=== PATIENT | male | born 1975 | race Two or more races ===

== ENCOUNTER → 2024-09-16 | Outpatient (CLI) | payer MEDICAID, SELFPAY ==
--- NOTE | 2024-09-16 15:30 | XR_ITS ---
Exam: MRI knee without contrast, left Date and time of exam: September 16, 2024 1652 hours INDICATIONS: Generalized knee pain one year Technique: Multiple axial, coronal, and sagittal sections on the knee have been obtained. T2-Weighted sagittal, fat-suppressed images, TR 3,500, TE 62, T2 weighted coronal fat-saturated images, TR 3,500, TE 62 Proton density sagittal sections, TR 1800, TE 31. T-1 weighted coronal images, TR 524, TE 13.0 Findings: Medial meniscus anterior horn intact. Medial meniscus, body intact. Posterior horn medial meniscus horizontal linear tear communicating inferior articular surface near the inner margin. Lateral meniscus anterior horn is intact Lateral meniscus, body is intact Posterior horn lateral meniscus is intact Anterior cruciate ligament high-grade sprain Posterior cruciate ligament appears intact. Knee effusion is large. Quadriceps and patellar tendons appear intact. There is no evidence of tendinosis. Inflammatory change or fracture of Hoffa's fat pad is not seen. Medial patellar facet demonstrates moderate thinning. Lateral patellar facet cartilage demonstrates moderate thinning. Trochlear cartilage demonstrates moderate thinning. Marrow signal adequate. Medial collateral ligament appears intact. No meniscocapsular separation is seen. Illiotibial band and fibular collateral ligament are intact. Biceps femoris tendons appear intact. Medial femoral condylar articular cartilage demonstrates moderate thinning. Lateral femoral condylar articular cartilage demonstratesmoderate thinning. Tibial plateau cartilage demonstrates moderate thinning. Impression: Horizontal linear tear posterior horn medial meniscus High-grade sprain anterior cruciate ligament
== END | disposition home or self-care (01) ==
LOC: SMRI 15:27
PROVIDERS: PCP Physician Assistant; Referring Provider Orthopaedic Surgery; Visit Provider Orthopaedic Surgery
DX: S83.512A Sprain of anterior cruciate ligament of left knee, initial encounter (principal); X58.XXXA Exposure to other specified factors, initial encounter; S83.242A Other tear of medial meniscus, current injury, left knee, initial encounter
CPT/HCPCS: 73721

== ENCOUNTER 2024-10-15 15:47 | Inpatient (IN) | payer MEDICAID, SELFPAY ==
[2024-10-15 15:48] VITALS: BMI 28.0
[2024-10-15 15:55] VITALS: BP 141/87; PULSE 101; RESP 20; TEMP 36.7; O2SAT 97
--- NOTE | 2024-10-15 16:05 | XR_ITS ---
Examination: PA lateral chest 2 views TECHNIQUE: Upright PA lateral chest 2 views INDICATIONS: Coughing up blood 2 weeks. FINDINGS: 21 mm pulmonary mass left upper lobe 22 mm pulmonary mass in the superior segment of probably the left lower lobe Normal heart size The osseous structures are intact IMPRESSION: Recommend CT chest without contrast follow-up to confirm pulmonary neoplastic masses
--- NOTE | 2024-10-15 16:06 | EDRME_ITS ---
Rapid Medical Screening Exam [facility] Arrival date/time: 10/15/24 15:47 CC: Coughing with blood HPI cough started 3 months ago speckled blood and then a large pool of blood started in the last 24 hours. Patient denies shortness of breath difficulty breathing does not smoke. Onset of cough 3 months ago was after a URI. No other complaints. Anxious. Chief Complaint: Nausea/Vomiting/Diarrhea Time Seen by Provider: 10/15/24 16:01 Vital signs: Vital Signs Temperature 98.1 F 10/15/24 15:55 Pulse Rate 101 H 10/15/24 15:55 Respiratory Rate 20 10/15/24 15:55 Blood Pressure 141/87 H 10/15/24 15:55 Pulse Oximetry (%) 97 10/15/24 15:55 Oxygen Delivery Method Room Air 10/15/24 15:55
[2024-10-15 16:19] LABS: Basophils # (Auto) 0.1 Thou/mm3 (0.0-0.2); Basophils % (Auto) 1 % (0-2.5); Eosinophils # (Auto) 0.2 Thou/mm3 (0.0-0.5); Eosinophils % (Auto) 2 % (0-10); Hematocrit 42.3 % (41.0-53.0); Hemoglobin 14.1 g/dL (13.5-16.0); Immature Granulocytes Auto 0.05 Thou/mm3 (0.00-0.00); Lymphocytes # (Auto) 4.3 Thou/mm3 (1.0-4.8); Lymphocytes % (Auto) 36 % (10-50); Mean Corpuscular HGB Conc 33.3 g/dl (31.0-37.0); Mean Corpuscular Hemoglobin 30.1 pg (25.0-35.0); Mean Corpuscular Volume 90 fL (80-100); Monocytes # (Auto) 1.3 Thou/mm3 (0.0-0.8); Monocytes % (Auto) 11 % (0-12); Neutrophils # (Auto) 5.9 Thou/mm3 (1.8-7.7); Neutrophils % (Auto) 50 % (37-80); Nucleated Red Blood Cell # 0.00 Thou/mm3 (0.00-0.00); Nucleated Red Blood Cell % 0 /100 WBC (0); Platelet Count 212 Thou/mm3 (140-440); RDW Standard Deviation 43.0 fL (35.1-43.9); Red Blood Count 4.68 Miln/mm3 (4.50-5.90); White Blood Count 11.8 Thou/mm3 (3.8-10.6)
[2024-10-15 16:39] LABS: INR 1.0 (0.9-1.3); Partial Thromboplastin Time 30.4 Seconds (22.0-36.0); Prothrombin Time 11.4 Seconds (9.0-12.2)
--- NOTE | 2024-10-15 16:40 | XR_ITS ---
Examination: CT chest, without intravenous contrast. Sagittal and coronal 2-D reconstructions. Exam date and time: October 15, 2024 1717 hours INDICATIONS: Hemoptysis today with pulmonary masses on chest x-ray today CTDI:vol (mGy) 12.4 DLP: (mGycm) 1412 Technique: Multiple 3.0 mm axial sections of the chest to been obtained. Bone and lung density settings are obtained. Sagittal and coronal 2-D reconstructions have been obtained. Low dose protocols were performed. One or more of the following dose reduction techniques were used; automated exposure control, adjustment of the mA and/or KV according to patient size, use of iterative reconstruction technique. Findings: High left para-aortic lymph node, 13 mm 14 mm right tracheobronchial lymph node No thoracic aortic aneurysmal dilatation Pulmonary artery segments are not enlarged Focal pneumonic consolidation anterior segment left upper lobe axial image 116 Thick-walled cavitary lesion left upper lobe 22 x 20 mm No additional soft pneumonic densities in the lingular segment axial image 147 Diffuse fatty infiltration throughout the liver No gallstones Spleen not enlarged No pancreatic or adrenal mass Kidneys partially visualized old hydronephrosis Mild thoracic spondylosis IMPRESSION: Thick-walled 22 x 20 mm cavitary lesion in the left upper lobe Soft areas of pneumonia in the left lung Highest on the differential list is infectious processes including active tuberculosis, pulmonary neoplasm in the left upper lobe less likely but not excluded
[2024-10-15 16:43] LABS: Alanine Aminotransferase 172 U/L (10-49); Albumin, Serum 4.4 gm/dL (3.5-5.0); Albumin/Globulin Ratio 1.4 (1.2-2.2); Alkaline Phosphatase 131 U/L (46-116); Anion Gap 11 (7-16); Aspartate Amino Transferase 148 U/L (0-34); BUN/Creatinine Ratio 16 Ratio (12-20); Bilirubin,Total 0.5 mg/dL (0.3-1.2); Blood Urea Nitrogen 11 mg/dL (9-23); Calcium 9.2 mg/dL (8.3-10.6); Calcium (Corrected) 9.2 mg/dL (8.5-10.1); Carbon Dioxide 22.3 mMol/L (20.0-31.0); Chloride 102 mMol/L (98-107); Creatinine (Component) 0.7 mg/dL (0.6-1.3); Estimated Creatinine Clearance 128.8 mL/min (>60); Globulin 3.2 gm/dL (2.3-3.5); Glucose 301 mg/dL (74-106); Osmolality,Calculated 280 (275-295); Potassium 4.2 mMol/L (3.4-5.1); Sodium 135 mMol/L (136-145); Total Protein 7.6 gm/dL (5.7-8.2); eGFR > 60 See Note
--- NOTE | 2024-10-15 17:14 | EDNOTE_ITS ---
ED General RME/HPI General Chief complaint: Nausea/Vomiting/Diarrhea Stated complaint: VOMITING BLOOD Time Seen by Provider: 10/15/24 16:01 Arrival date/time: 10/15/24 15:47 RME / HPI RME / HPI narrative: 49-year-old male patient came in for evaluation regarding coughing with blood HPI cough started 3 months ago speckled blood and then a large pool of blood started in the last 24 hours. Patient denies shortness of breath difficulty b reathing does not smoke. Onset of cough 3 months ago was after a URI. No other complaints. Anxious. Related Data Allergies Allergy/AdvReac Type Severity Reaction Status Date / Time No Known Allergies Allergy Verified 10/15/24 15:51 Review of Systems Review of Systems Narrative Review of Systems: Review of system reviewed and within normal limits except mentioned in HPI ED Exam Narrative Physical exam: VITAL SIGNS: Reviewed. GENERAL APPEARANCE: Alert and interactive, follows commands, no acute distress, HEAD AND FACE: Non-traumatic. ENT: PERRL, pink conjunctivitis, eyelid no trauma, Mucous membrane moist. NECK: Supple, nontender, no nuchal rigidity. CHEST: No tenderness, no crepitus, no paradoxical movement, no retractions. LUNGS: Clear, well ventilated, symmetric, no rales, no wheezing, no ronchi, no stridor, good breath sounds bilaterally. HEART: Regular rate, regular rhythm, no murmur, no gallops. ABDOMEN: Soft, positive bowel sounds, nondistended, no guarding, nontender, no rebound, no masses, RECTAL: Deferred. GENITAL: Deferred. NEUROLOGICAL: Gross motor function intact sensory function intact, Appropriate for age. MUSCULOSKELETAL: low back nontender, full range of motion. EXTREMITIES: Nontender, full range of motion. SKIN: Color pink, dry, no rash, no lacerations, no abrasions, no contusions. LYMPHATICS: Deferred. Course Quality Measures none Orders Category Date Time Status Bedside COVID-19 Antigen Test NOW Care 10/15/24 18:43 Active COVID-19 Screening Questionnaire NOW Care 10/15/24 18:18 Active Decision to Admit X1 Care 10/15/24 18:[address] chest wo con Stat Exams 10/15/24 16:40 Completed XR chest 2V Stat Exams 10/15/24 16:05 Completed Blood Culture (Lab) Stat Lab 10/15/24 17:33 Received CBC Stat Lab 10/15/24 16:11 Completed CMP [Comprehensive Metabolic Panel] Stat Lab 10/15/24 16:11 Completed Cocci Serology IgM with reflex to IgG [Cocci Serology, Lab 10/15/24 17:30 Received Unk History] Stat Lactic Acid [Lactate (Lactic Acid)] Stat Lab 10/15/24 17:30 Completed PT [Prothrombin Time with INR] Stat Lab 10/15/24 16:11 Completed PTT [Partial Thromboplastin Time] Stat Lab 10/15/24 16:11 Completed Procalcitonin Stat Lab 10/15/24 16:11 Completed Sputum Culture and Gram Stain Stat Lab 10/15/24 17:55 Received Sodium Chloride Rt Alison 10% [NS Rt Alison 10%] Med 10/15/24 17:16 Discontinued 5 ml INH X1 ONE Sputum Induction PRN RT 10/15/24 17:30 Ordered Vital Signs Vital signs: Vital Signs Temperature 98.1 F 10/15/24 15:55 Pulse Rate 101 H 10/15/24 15:55 Respiratory Rate 20 10/15/24 15:55 Blood Pressure 141/87 H 10/15/24 15:55 Pulse Oximetry (%) 97 10/15/24 15:55 Oxygen Delivery Method Room Air 10/15/24 15:55 Discharge Plan Plan Patient Disposition: Admit Acute Care w/in Hospital Problem List Clinical Impression: Cough with hemoptysis MDM Narrative MDM hospital course: 49-year-old male patient came in for evaluation regarding coughing with blood HPI cough started 3 months ago speckled blood and then a large pool of blood started in the last 24 hours. Patient denies shortness of breath difficulty breathing does not smoke. Onset of cough 3 months ago was after a URI. No other complaints. Anxious. Patient's laboratory workup significant for slight leukocytosis of 11.8 the rest of the labs unremarkable. Shift blood sugar of 301, AST of 148 ALT of 172 alkaline phos of 131. Patient is diabetic CT chest showed Thick-walled 22 x 20 mm cavitary lesion in the left upper lobe Soft areas of pneumonia in the left lung Highest on the differential list is infectious processes including active tuberculosis, pulmonary neoplasm in the left upper lobe less likely but not excluded Case discussed with hospitalist, and admitted the patient. Patient was put on isolation ruling out active tuberculosis. Medication Administration(s) Medication Administration History Acetaminophen (Acetaminophen 325 Mg Tablet) 650 mg PO Q6H PRN PRN Reason: Fever >101.5 Stop: 11/14/24 20:33 Acetaminophen (Acetaminophen 325 Mg Tablet) 650 mg PO Q6H PRN PRN Reason: PAIN SCALE 1-3 (mild Stop: 11/14/24 20:38 Hydrocodone Bitart/Acetaminophen (Hydrocodone/Apap 5/325 Tablet) 1 tab PO Q4HR PRN PRN Reason: PAIN SCALE 4-10(Mod-Sev Stop: 10/20/24 20:38 Enoxaparin Sodium (Enoxaparin Sod Inj 40 Mg/0.4 Ml Syringe) 40 mg SC QDAY SYLVESTER Stop: 10/30/24 08:59 Ondansetron HCl (Ondansetron Inj 2 Mg/Ml Inj 2 Ml) 4 mg IVP Q6H PRN; Protocol PRN Reason: NAUSEA OR VOMITING Stop: 11/14/24 20:38 Sennosides (Senna Tablet) 1 tab PO QDAY PRN; Protocol PRN Reason: constipation Stop: 11/14/24 20:38 Discontinued Medications Sodium Chloride (Sodium Chloride Rt 10% 15 Ml Nebu) 5 ml INH X1 ONE Stop: 10/15/24 17:17 Last Admin: 10/15/24 18:57 Dose: Not Given Documented By: MM Non-Admin Reason: sputum collected Sodium Chloride (Sodium Chloride Rt 10% 15 Ml Nebu) 5 ml INH X1 ONE Stop: 10/15/24 20:51 Diagnosis Differential diagnosis: Hemoptysis, tuberculosis, lung carcinoma Most likely dx, and/or detailed dx discussion: Hemoptysis, ruling out tuberculosis
[2024-10-15 17:39] VITALS: BP 159/85; PULSE 93; RESP 16; TEMP 37.1; O2SAT 98
[2024-10-15 17:45] LABS: Lactate (Lactic Acid) 1.6 mMol/L (0.4-2.0)
[2024-10-15 17:50] LABS: Procalcitonin 0.12 ng/ml (0.0-0.49)
[2024-10-15 18:10] VITALS: BP 126/87; PULSE 89; RESP 17; TEMP 37.1; O2SAT 97
--- NOTE | 2024-10-15 18:55 | PD.RESEVENT ---
Documentation for date of: 10/15/24 Event Note Event Note: ED called for admission at 640pm for 49-year-old male who came in complaining of hematemesis for the past 6 weeks which has worsened over the last couple days. Patient has no risk factor for TB including no incarceration history no recent travels. Will pass that on to the night team for further workup and admissions
[2024-10-15 21:00] VITALS: BP 130/94; PULSE 84; RESP 19; TEMP 36.8; O2SAT 100
--- NOTE | 2024-10-15 21:00 | ESHP_ITS ---
Documentation for date of: 10/15/24 [facility] History of Present Illness Chief complaint: Hemoptysis that has worsened over the last 24 hours History of present illness: 49-year-old male with a history of type 2 diabetes mellitus and hypertension who presents with cough and hemoptysis. He reports cough onset approximately 3 months ago after a febrile upper respiratory illness lasting 1?2 weeks. At that time, he experienced fever and chills which resolved, but he continued to have morning cough with phlegm. About 6 weeks ago, he began noticing specks of bright red blood in sputum intermittently. One week ago, he experienced an episode of pure bright red blood without sputum, lasting about 1 minute, soaking multiple napkins. Today, he again coughed up bright red blood around lunchtime, prompting ED evaluation at the urging of his children. He estimates today?s episode filled 6-7 napkins; no episodes have produced more than this. No foul odor, aspiration, or breathing difficulty during episodes. No chest pain, shortness of breath, night sweats, unintentional weight loss, dysphagia, or voice change. Appetite and weight are stable (81.193 kg), though he eats once daily by choice. He denies prior TB diagnosis, prolonged cough episodes in the past, sick contacts, incarceration, homelessness, or travel outside local area. 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 Denies eye symptoms, oral ulcers, rash, nasal congestion, or sinus symptoms. No hematuria, joint pain aside from chronic right knee swelling (MRI obtained 3?4 weeks ago). ROS: Constitutional: No fevers, chills, night sweats, or weight loss. HEENT: No vision changes, oral ulcers, nasal congestion, epistaxis. Respiratory: Hemoptysis as above, no dyspnea or wheezing. Cardiovascular: No chest pain, palpitations, or syncope. GI: No dysphagia, nausea, vomiting, abdominal pain, melena, or hematochezia. : No hematuria or dysuria. MSK: Chronic right knee swelling. Skin: No rash or nodules. Neuro: No focal deficits, headaches, or seizures. Past Medical History * Type 2 diabetes mellitus * Hypertension Past Surgical History * None Medications * Basaglar 40 units subcutaneously daily * Likely benazepril (pending med rec) Allergies * No known drug allergies Family History * Sister: uterine cancer * No family history of lung cancer or TB Social History * Works as automotive collision estimator (asbestos/diesel exposure) * No tobacco use; occasional cannabis (~monthly) * No second-hand smoke exposure * Rare alcohol (beer) * No illicit drug use * Lives with four children, no sick contacts * New puppy, no bird or rodent exposures Exam Vital Signs Temp Pulse Resp BP Pulse Ox O2 Del Method 98.7 F 89 17 126/87 H 97 Room Air 10/15/24 18:10 10/15/24 18:10 10/15/24 18:10 10/15/24 18:10 10/15/24 18:10 10/15/24 17:39 Narrative Exam General: Alert, oriented, interactive, no acute distress. HEENT: PERRL, moist mucous membranes, no oral lesions, no conjunctival injection. Neck: Supple, no lymphadenopathy. Lungs: Clear to auscultation bilaterally, no wheezes, rales, or rhonchi; symmetric breath sounds. Heart: Regular rate and rhythm, no murmurs. Abdomen: Soft, non-tender, non-distended, positive bowel sounds. Extremities: No cyanosis, clubbing, or edema; right knee swelling noted, non- erythematous. Skin: No rash or nodules. Neuro: No focal deficits. Results: Labs 10/15/24 16:11 10/15/24 16:11 Labs: Short CBC 10/15/24 Range/Units 16:11 WBC 11.8 H (3.8-10.6) Thou/mm3 Hgb 14.1 (13.5-16.0) g/dL Hct 42.3 (41.0-53.0) % Plt Count 212 (140-440) Thou/mm3 BMP 10/15/24 16:11 Sodium 135 L Potassium 4.2 Chloride 102 Carbon Dioxide 22.3 BUN 11 Creatinine 0.7 Glucose 301 H Calcium 9.2 Liver Function 10/15/24 Range/Units 16:11 Total Bilirubin 0.5 (0.3-1.2) mg/dL AST 148 H (0-34) U/L ALT 172 H (10-49) U/L Alkaline Phosphatase 131 H (46-116) U/L Albumin 4.4 (3.5-5.0) gm/dL Quality Measures Quality Measures VTE prophylaxis Medications Home Medications and Allergies Home Medications ?Medication ?Instructions ?Recorded ?Confirmed ?Type acetaminophen 650 mg 650 mg PO Q12H PRN pain 10/0210/15/24 History tablet,extended release amlodipine 5 mg tablet 5 mg PO DAILY 10/15/2410/15 History benazepril 40 mg tablet 40 mg PO DAILY 10/15/2410/02 History cyclobenzaprine 10 mg tablet 10 mg PO .qhs 10/15/24 History hydrocodone 7.5 mg-acetaminophen 1 tab PO Q6H 10/15/24 10/15/24 History 325 mg tablet ibuprofen 600 mg tablet 600 mg PO Q6H PRN pain 10/1510/15/24 History insulin glargine 100 unit/mL (3 40 unit subcut DAILY 0 10/15/24 10/15/24 History mL) subcutaneous pen (Appercodeaglar KwikPen U-100 Insulin) metoprolol succinate 50 mg 50 mg PO DAILY 10/15/2410/02 History tablet,extended release 24 hr promethazine-DM 6.25 mg-15 mg/5 mL 5 ml PO Q4H PRN cou gh 10/15/24 10/15/24 History oral syrup Allergies Allergy/AdvReac Type Severity Reaction Status Date / Time No Known Allergies Allergy Verified 10/15/24 15:51 Visit Medications Acetaminophen (Acetaminophen 325 Mg Tablet) 650 mg PO Q6H PRN PRN Reason: Fever >101.5 Stop: 11/14/24 20:33 Acetaminophen (Acetaminophen 325 Mg Tablet) 650 mg PO Q6H PRN PRN Reason: PAIN SCALE 1-3 (mild Stop: 11/14/24 20:38 Hydrocodone Bitart/Acetaminophen (Hydrocodone/Apap 5/325 Tablet) 1 tab PO Q4HR PRN PRN Reason: PAIN SCALE 4-10(Mod-Sev Stop: 10/20/24 20:38 Enoxaparin Sodium (Enoxaparin Sod Inj 40 Mg/0.4 Ml Syringe) 40 mg SC QDAY SYLVESTER Stop: 10/30/24 08:59 Ondansetron HCl (Ondansetron Inj 2 Mg/Ml Inj 2 Ml) 4 mg IVP Q6H PRN; Protocol PRN Reason: NAUSEA OR VOMITING Stop: 11/14/24 20:38 Sennosides (Senna Tablet) 1 tab PO QDAY PRN; Protocol PRN Reason: constipation Stop: 11/14/24 20:38 Discontinued Medications Sodium Chloride (Sodium Chloride Rt 10% 15 Ml Nebu) 5 ml INH X1 ONE Stop: 10/15/24 17:17 Last Admin: 10/15/24 18:57 Dose: Not Given Sodium Chloride (Sodium Chloride Rt 10% 15 Ml Nebu) 5 ml INH X1 ONE Stop: 10/15/24 20:51 Assessment & Plan Plan 49M with type 2 DM and HTN, presenting with subacute hemoptysis and CT showing a thin-walled cavitary lesion (3.84 mm) in JENNIFER with adjacent pneumonia. Infectious etiology favored; malignancy not excluded. Hemodynamically stable, afebrile, saturating well on room air. # Hemoptysis Thin-walled cavitary lesion with adjacent pneumonia; no massive hemoptysis. Stable H/H, no respiratory distress. Infectious etiology (TB, bacterial, fungal) favored given history; occupational exposures and asbestos raise malignancy risk, but wall thickness <4 mm favors benign causes. Plan: * Airborne isolation until TB ruled out * AFB sputum cultures ?3 q8h starting 8 AM tomorrow * TB Quantiferon * cocci serology * HIV Ab/Ag * Legionella Ag * ESR, CRP in AM * Continue sputum culture * Monitor for recurrent or massive hemoptysis * Trend CBC # Pneumonia, unspecified organism Left lung involvement adjacent to cavity; mild leukocytosis, no hypoxia. Plan: * Start antibiotics if clinical status changes or cultures positive * Follow blood and sputum cultures * Monitor vitals, fever curve, oxygenation # Type 2 Diabetes Mellitus without complications Bedside blood glucose is 138 Plan: * Continue home Basaglar 40 units daily pending med recs * Start correctional insulin * Monitor BG AC & HS * Adjust regimen based on inpatient trends # Hypertension Currently mildly elevated BP; on home benazepril (pending med rec). Plan: * Resume home medication once confirmed * Monitor BP #Effusion of left knee (chronic swelling) No signs of acute infection. Plan: * Review prior MRI results * Outpatient ortho follow-up Health Maintenance Disposition: Admit to medicine, airborne isolation Feeding: Low carb consistent diet Thromboprophylaxis: Lovenox GI prophylaxis: Not indicated at this time Code Status: Full code ----- Plan discussed with attending physician Dr. Babita Ortega MD PGY-1 Internal Medicine Attending Provider Attestation/Addendum I attest that I was physically present for the evaluation, physical examination, lab and imaging review of the patient with the residents. I discussed the case with the residents and agree with the findings and plans of care as documented above. After examination of the patient and review of the clinical data I feel that this patient needs admission to the hospital for further treatment/evaluation. Patient is a 49 years old male with past medical history of diabetes mellitus and hypertension who presented to the ED with complaint of hemoptysis. Patient has been having cough for almost 3 months, which started as a upper respiratory tract infection lasting about a week. His symptoms including fever, chills subsided but he continued to have cough especially in the morning. About 6 weeks ago, he started having streaks of blood in the sputum on and off. Today, he had episodes of hemoptysis with higher amount of blood with prompted the visit to the ED. Denies any fever, chills, night sweats, unintentional weight loss, recent travel or sick contacts. In the ED, vitals were stable except for mild hypertension and tachycardia. Lab results show WBC of 11.8, sodium 135, glucose 301, AST 148, ALT 172, ALP 131. Chest x-ray was obtained, which showed concern for 21 mm pulmonary mass on left upper lobe and 22 mm pulmonary mass in superior segment of left lower lobe. CT chest without contrast was obtained subsequently which showed thick-walled 22 x 40 cm cavitary lesion in the left upper lobe. Also found to have left para-aortic lymph node of 13 mm and right tracheobronchial lymph node 14 mm. Blood and sputum cultures were obtained in the ED. We will admit the patient for further evaluation of hemoptysis and cavitary lesion. We will start him on isolation until tuberculosis is ruled out. We will obtain TB QuantiFERON, sputum AFB, coccidiomycosis serology, Legionella, HIV. Hemoglobin this time is stable, we will continue to monitor. Patient does not seem to be an active bacterial infection, we will hold off on antibiotics for now. Started insulin regimen for diabetes. We will also resume his home antihypertensives once med rec is complete. Socorro Jc MD
[2024-10-15 22:12] LABS: HIV (1&2) Antibody Rapid Non-Reactive
--- NOTE | 2024-10-15 22:22 | PC.NURSE ---
REPORT GIVEN TO GUERO TAFOYA AT [facility].
[2024-10-15 22:47] VITALS: BMI 26.6
[2024-10-16] VITALS (8 sets, daily range): BP systolic 123–154; BP diastolic 84–100; PULSE 81–94; RESP 18–98; TEMP 36.1–37.2; O2SAT 95–99
[2024-10-16 05:54] LABS: Quantiferon-TB* See Sep Rpt
[2024-10-16 05:56] LABS: Basophils # (Auto) 0.1 Thou/mm3 (0.0-0.2); Basophils % (Auto) 1 % (0-2.5); Eosinophils # (Auto) 0.3 Thou/mm3 (0.0-0.5); Eosinophils % (Auto) 4 % (0-10); Hematocrit 46.3 % (41.0-53.0); Hemoglobin 15.2 g/dL (13.5-16.0); Immature Granulocytes Auto 0.05 Thou/mm3 (0.00-0.00); Lymphocytes # (Auto) 2.5 Thou/mm3 (1.0-4.8); Lymphocytes % (Auto) 30 % (10-50); Mean Corpuscular HGB Conc 32.8 g/dl (31.0-37.0); Mean Corpuscular Hemoglobin 30.0 pg (25.0-35.0); Mean Corpuscular Volume 91 fL (80-100); Monocytes # (Auto) 1.3 Thou/mm3 (0.0-0.8); Monocytes % (Auto) 15 % (0-12); Neutrophils # (Auto) 4.2 Thou/mm3 (1.8-7.7); Neutrophils % (Auto) 50 % (37-80); Nucleated Red Blood Cell # 0.00 Thou/mm3 (0.00-0.00); Nucleated Red Blood Cell % 0 /100 WBC (0); Platelet Count 210 Thou/mm3 (140-440); RDW Standard Deviation 43.8 fL (35.1-43.9); Red Blood Count 5.07 Miln/mm3 (4.50-5.90); White Blood Count 8.5 Thou/mm3 (3.8-10.6)
[2024-10-16 06:14] LABS: Glucose Estimated Average 214 mg/dL (80-131); Hemoglobin A1C 9.1 % Hgb (4.8-6.0)
[2024-10-16 06:26] LABS: Alanine Aminotransferase 155 U/L (10-49); Albumin, Serum 4.3 gm/dL (3.5-5.0); Albumin/Globulin Ratio 1.3 (1.2-2.2); Alkaline Phosphatase 143 U/L (46-116); Anion Gap 10 (7-16); Aspartate Amino Transferase 125 U/L (0-34); BUN/Creatinine Ratio 14 Ratio (12-20); Bilirubin,Total 0.6 mg/dL (0.3-1.2); Blood Urea Nitrogen 11 mg/dL (9-23); C-Reactive Protein 1.2 mg/dL (0.0-0.9); Calcium 9.6 mg/dL (8.3-10.6); Calcium (Corrected) 9.6 mg/dL (8.5-10.1); Carbon Dioxide 26.4 mMol/L (20.0-31.0); Chloride 103 mMol/L (98-107); Creatinine (Component) 0.8 mg/dL (0.6-1.3); Estimated Creatinine Clearance 103.3 mL/min (>60); Globulin 3.2 gm/dL (2.3-3.5); Glucose 243 mg/dL (74-106); Magnesium 1.9 mg/dL (1.6-2.6); Osmolality,Calculated 284 (275-295); Phosphorous 3.3 mg/dL (2.4-5.1); Potassium 4.5 mMol/L (3.4-5.1); Sodium 139 mMol/L (136-145); Total Protein 7.5 gm/dL (5.7-8.2); eGFR > 60 See Note
[2024-10-16 06:30] LABS: Sed Rate (ESR) 43 mm/hr (0-20)
--- NOTE | 2024-10-16 07:40 | PC.NURSE ---
Per pt does not use insulin frequently at home refuses anything that involves needles made MD Lemos aware. currently refusing lovenox and insulin. pt also requesting to see a md d/t wanting to go home.
--- NOTE | 2024-10-16 08:59 | PC.NURSE ---
Rounded with MD Varner this am. Made MD aware of pts refusal to take insulin and current blood sugars in the low 200s. Education provided to pt on diet, hyperglycemia s/s per Pt no symptoms present at time.
[2024-10-16] MEDS: METOPROLOL SUCCINATE XL 25 MG TABCR 50 MG PO (09:10)
--- NOTE | 2024-10-16 10:07 | PC.SS ---
Patient Dani Zhang is a Year old male admitted for Hemoptysis. SS contacted patient via Phone due to precaution measures. Patient reports he lives at home with his-- children. Patient's surrogate decision maker is his mother, Raiza Bernabe [phone]. Patient reports he does not utilize any source of DME to assist with ambulation. Patient is able to complete all ADL's independently. [facility] At time of discharge patient will discharge home when medically cleared. Discharge plan: Home Next of kin: Mother, Raiza Bernabe
[2024-10-16 13:37] LABS: Cocci Serology, IgM Negative (Negative)
--- NOTE | 2024-10-16 13:43 | PC.IP ---
Dr. Canela and [facility] were informed that three sputum specimens for AFB are required, with two specimens including the NAAT test. Per MARCUS Lopez from [facility], if the patient leaves [place], the [facility] Health Officer must be notified.
[2024-10-16] MEDS: Magnesium Sulfate 4 GM Ivpb 4 GM/50 ML BAG IV (13:52)
--- NOTE | 2024-10-16 14:39 | PC.SS ---
SS follow up note; TB R/O pending. Patietn will discharge home when medically cleared.
--- NOTE | 2024-10-16 14:46 | ESPR_ITS ---
<Statement entered by Parker Betts MD - 10/16/24 22:43> Patient was examined and case was reviewed with team including attending physician. Note reviewed, I agree with most of its contents and agree with the patient's care as documented by Dr. Mcintosh Patient seen today at the bedside found awake, alert, orientedx3. No overnight events reported. Vital signs stable at this time. Patient is pending AFBs x3 for TB rule out. Patient with hemoptysis. Unknown why he is not in isolation room. Parker Betts MD PGY-2 Documentation for date of: 10/16/24 Subjective Subjective Interval history: No overnight events. Evaluated at bedside. Pt expressed desire to leave AMA. Explained to pt that he is currently admitted for suspected TB rule out. Pt understands and is agreeable to stay in hospital until TB rule out. Pt refused insulin today despite hx of DM and high blood sugar reading this morning. A1C 9.1 Exam Vital Signs Temp Pulse Resp BP Pulse Ox O2 Del Method 97.0 F 84 21 H 129/97 H 97 Room Air 10/16/24 12:00 10/16/24 12:00 10/16/24 12:00 10/16/24 12:00 10/16/24 12:10/16/24 12:00 Narrative Exam General: Well appearing, well nourished, in no distress. Oriented x 3, normal mood and affect . Ambulating without difficulty. Skin: Good turgor, no rash, unusual bruising or prominent lesions Head: Normocephalic, atraumatic, no visible or palpable masses, depressions, or scaring. Eyes: Visual acuity intact, conjunctiva clear, sclera non-icteric, EOM intact, PERRL, no exudates or hemorrhages Heart: No cardiomegaly or thrills; regular rate and rhythm, no murmur or gallop Lungs: Clear to auscultation and percussion. No rales, wheeze, or rhonchi Abdomen: Bowel sounds normal, no tenderness, organomegaly, masses, or hernia Back: Spine normal without deformity or tenderness, no CVA tenderness Extremities: No amputations or deformities, cyanosis, edema or varicosities, peripheral pulses intact Musculoskeletal: Normal gait and station. No misalignment, asymmetry, crepitation, defects, tenderness, masses, effusions, decreased range of motion, instability, atrophy or abnormal strength or tone in the head, neck, spine, ribs, pelvis or extremities. Psychiatric: Oriented X3, intact recent and remote memory, judgment and insight, normal mood and affect. Objective Labs 10/17/24 04:59 10/17/24 04:59 Labs: Laboratory Results - last 24 hr 10/15/24 10/15/24 10/16/24 16:11 17:30 05:05 WBC 11.8 H 8.5 RBC 4.68 5.07 Hgb 14.1 15.2 Hct 42.3 46.3 MCV 90 91 MCH 30.1 30.0 MCHC 33.3 32.8 RDW Std Deviation 43.0 43.8 Plt Count 212 210 Neut % (Auto) 50 50 Lymph % (Auto) 36 30 [place] % (Auto) 11 15 H Eos % (Auto) 2 4 Baso % (Auto) 1 1 Neut # (Auto) 5.9 4.2 Lymph # (Auto) 4.3 2.5 [place] # (Auto) 1.3 H 1.3 H Eos # (Auto) 0.2 0.3 Baso # (Auto) 0.1 0.1 Immature Gran # (Auto) 0.05 H 0.05 H Absolute Nucleated RBC 0.00 0.00 Immature Gran % 0 1 H Nucleated RBC % 0 0 ESR 43 H PT 11.4 INR 1.0 APTT 30.4 Sodium 135 L 139 Potassium 4.2 4.5 Chloride 102 103 Carbon Dioxide 22.3 26.4 Anion Gap 11 10 BUN 11 11 Creatinine 0.7 0.8 Estim Creat Clear Calc 128.8 103.3 eGFR > 60 > 60 BUN/Creatinine Ratio 16 14 Glucose [address] Glu mg/dL 214 H Hemoglobin A1c 9.1 H Calculated Osmolality 280 284 Lactic Acid 1.6 Calcium 9.2 9.6 Corrected Calcium 9.2 9.6 Phosphorus 3.3 Magnesium 1.9 Total Bilirubin 0.5 0.6 AST 148 H 125 H ALT 172 H 155 H Alkaline Phosphatase 131 H 143 H C-Reactive Prot, Quant 1.2 H Total Protein 7.6 7.5 Albumin 4.4 4.3 Globulin 3.2 3.2 Albumin/Globulin Ratio 1.4 1.3 Procalcitonin 0.12 Coccidioides IgM Ab Negative HIV 1&2 Antibody Rapid Non-Reactive Quality Measures Quality Measures VTE prophylaxis Assessment & Plan Assessment Current Active Medications: Generic Name Dose Route Start Last Admin Trade Name Rudy PRN Reason Stop Dose Admin Acetaminophen 650 mg 10/15/24 20:34 Acetaminophen 325 Mg Tablet PO 11/14/24 20:33 Q6H PRN Fever >101.5 Acetaminophen 650 mg 10/15/24 20:39 Acetaminophen 325 Mg Tablet PO 11/14/24 20:38 Q6H PRN PAIN SCALE 1-3 (mild Hydrocodone Bitart/Acetaminophen 1 tab 10/15/24 20:39 Hydrocodone/Apap 5/325 Tablet PO 10/20/24 20:38 Q4HR PRN PAIN SCALE 4-10(Mod-Sev Amlodipine Besylate 5 mg 10/16/24 09:00 10/16/24 09:10 Amlodipine Besylate 5 Mg Tablet PO 11/15/24 08:59 5 mg DAILY SYLVESTER Administration Dextrose 25 ml 10/16/24 05:36 Dextrose 50%-Water Inj 50 Ml Syringe IV 11/15/24 05:35 Q15MIN PRN BG 50-70 responsive npo pt Dextrose 50 ml 10/16/24 05:36 Dextrose 50%-Water Inj 50 Ml Syringe IV 11/15/24 05:35 Q15MIN PRN BG <50 OR BG <70 & pt unresponsive Enoxaparin Sodium 40 mg 10/16/24 09:00 10/16/24 07:40 Enoxaparin Sod Inj 40 Mg/0.4 Ml Syringe SC 10/30/24 08:59 Not Given QDAY SYLVESTER Glucagon 1 mg 10/16/24 05:36 Glucagon Inj 1 Mg Vial IM Q15MIN PRN BG <70, and no IV access Insulin Human Regular 0 unit 10/16/24 07:30 10/16/24 07:39 Insulin Hum Regular 1 Unit/0.01 Ml (Per Unit) SC 11/15/24 07:29 Not Given AC SYLVESTER Protocol Lisinopril 40 mg 10/16/24 09:00 10/16/24 09:10 Lisinopril 20 Mg Tablet PO 11/15/24 08:59 40 mg DAILY SYLVESTER Administration Protocol Metoprolol Succinate 50 mg 10/16/24 09:00 10/16/24 09:10 Metoprolol Succinate Xl 25 Mg Tabcr PO 11/15/24 08:59 50 mg DAILY SYLVESTER Administration Ondansetron HCl 4 mg 10/15/24 20:39 Ondansetron Inj 2 Mg/Ml Inj 2 Ml IVP 11/14/24 20:38 Q6H PRN NAUSEA OR VOMITING Protocol Sennosides 1 tab 10/15/24 20:39 Senna Tablet PO 11/14/24 20:38 QDAY PRN constipation Protocol Plan 49M with type 2 DM and HTN, presenting with subacute hemoptysis and CT showing a thin-walled cavitary lesion (3.84 mm) in JENNIFER with adjacent pneumonia. Infectious etiology favored; malignancy not excluded. Hemodynamically stable, afebrile, saturating well on room air. Pending TB r/o. AFB-NAAT sent-out lab ordered. # Hemoptysis Thin-walled cavitary lesion with adjacent pneumonia; no massive hemoptysis. Stable H/H, no respiratory distress. Infectious etiology (TB, bacterial, fungal) favored given history; occupational exposures and asbestos raise malignancy risk, but wall thickness <4 mm favors benign causes. Plan: - Airborne isolation until TB ruled out - AFB sputum cultures with NAAT ?3 q8h - TB Quantiferon pending - cocci serology pending - HIV Ab/Ag pending - Legionella Ag pending - ESR, CRP in AM - Continue sputum culture - Monitor for recurrent or massive hemoptysis - Trend CBC # Pneumonia, unspecified organism Left lung involvement adjacent to cavity; mild leukocytosis, no hypoxia. Plan: - Start antibiotics if clinical status changes or cultures positive - Follow blood and sputum cultures - Monitor vitals, fever curve, oxygenation # Type 2 Diabetes Mellitus without complications Bedside blood glucose is 138 Plan: - Hold home Basaglar 40 units daily - Start ISS - Monitor BG AC & HS - Adjust regimen based on inpatient trends # Hypertension Currently mildly elevated BP; on home benazepril. Plan: - Continue home medication lisinopril 40mg PO QD, metoprolo succ 50mg PO QD - Monitor BP #Effusion of left knee (chronic swelling) No signs of acute infection. Plan: - Review prior MRI results - Outpatient ortho follow-up Health Maintenance Disposition: Admit to medicine, airborne isolation Feeding: Low carb consistent diet Thromboprophylaxis: Lovenox GI prophylaxis: Not indicated at this time Code Status: Full code Case discussed with my senior resident Dr. Collado Case discussed with my attending Dr. Rola Mcintosh DO PGY 1 Attending Provider Attestation/Addendum I have examined the patient, reviewed labs and imaging findings, discussed the case with the resident(s), and reviewed entered orders. I agree with the plan of care as outlined in this note, with these additional summaries/recommendations: Patient seen at bedside. He was admitted overnight. On admission patient endorsed hemoptysis. CT scan was significant for thick walled 22X 20 mm cavitary lesion in the left upper lobe and soft areas of pneumonia in the lung. 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 He denies any significant travel. Patient admitted for hemoptysis in the setting of cavitary lesion and superimposed bacterial pneumonia. Active tuberculosis needs to be ruled out. Order AFBs x 3 and quantiferon test. Order cocci serology. Blood cultures taken. Continue IV antibiotics. Continue basal and bolus insulin for diabetes mellitus type 2. Target blood sugar of 140-180 while hospitalized. Minimal transaminitis present and we will continue to monitor. Avoid hepatotoxic agents. Patient updated on the plan and agreement. All questions answered to satisfaction. Please see residents note for additional details and management. Dr. Rola MD
[2024-10-16 17:11] LABS: Cult AFB Sendout- Sputum* See Sep Rpt
[2024-10-16] MEDS: INSULIN LISPRO (AdmeLOG) 1 UNIT/0.01 ML UNIT SC (21:51)
[2024-10-16] MEDS: HYDROcodone/APAP 5/325 TABLET 1 TAB PO (22:36)
[2024-10-17] VITALS (9 sets, daily range): BP systolic 122–150; BP diastolic 74–94; PULSE 64–81; RESP 13–98; TEMP 36.3–36.7; O2SAT 98–100; BMI 26.7
[2024-10-17 01:08] LABS: Cult AFB Sendout- Sputum* See Sep Rpt
[2024-10-17 06:22] LABS: Basophils # (Auto) 0.1 Thou/mm3 (0.0-0.2); Basophils % (Auto) 1 % (0-2.5); Eosinophils # (Auto) 0.3 Thou/mm3 (0.0-0.5); Eosinophils % (Auto) 4 % (0-10); Hematocrit 43.9 % (41.0-53.0); Hemoglobin 14.7 g/dL (13.5-16.0); Immature Granulocytes Auto 0.05 Thou/mm3 (0.00-0.00); Lymphocytes # (Auto) 2.8 Thou/mm3 (1.0-4.8); Lymphocytes % (Auto) 34 % (10-50); Mean Corpuscular HGB Conc 33.5 g/dl (31.0-37.0); Mean Corpuscular Hemoglobin 30.6 pg (25.0-35.0); Mean Corpuscular Volume 91 fL (80-100); Monocytes # (Auto) 1.1 Thou/mm3 (0.0-0.8); Monocytes % (Auto) 14 % (0-12); Neutrophils # (Auto) 3.9 Thou/mm3 (1.8-7.7); Neutrophils % (Auto) 47 % (37-80); Nucleated Red Blood Cell # 0.00 Thou/mm3 (0.00-0.00); Nucleated Red Blood Cell % 0 /100 WBC (0); Platelet Count 205 Thou/mm3 (140-440); RDW Standard Deviation 42.9 fL (35.1-43.9); Red Blood Count 4.81 Miln/mm3 (4.50-5.90); White Blood Count 8.2 Thou/mm3 (3.8-10.6)
[2024-10-17 06:42] LABS: Alanine Aminotransferase 132 U/L (10-49); Albumin, Serum 4.2 gm/dL (3.5-5.0); Albumin/Globulin Ratio 1.3 (1.2-2.2); Alkaline Phosphatase 130 U/L (46-116); Anion Gap 9 (7-16); Aspartate Amino Transferase 95 U/L (0-34); BUN/Creatinine Ratio 14 Ratio (12-20); Bilirubin,Total 0.9 mg/dL (0.3-1.2); Blood Urea Nitrogen 10 mg/dL (9-23); Calcium 9.3 mg/dL (8.3-10.6); Calcium (Corrected) 9.3 mg/dL (8.5-10.1); Carbon Dioxide 26.4 mMol/L (20.0-31.0); Chloride 100 mMol/L (98-107); Creatinine (Component) 0.7 mg/dL (0.6-1.3); Estimated Creatinine Clearance 118.0 mL/min (>60); Globulin 3.2 gm/dL (2.3-3.5); Glucose 208 mg/dL (74-106); Magnesium 2.0 mg/dL (1.6-2.6); Osmolality,Calculated 275 (275-295); Phosphorous 3.7 mg/dL (2.4-5.1); Potassium 4.2 mMol/L (3.4-5.1); Sodium 135 mMol/L (136-145); Total Protein 7.4 gm/dL (5.7-8.2); eGFR > 60 See Note
[2024-10-17] MEDS: INSULIN LISPRO (AdmeLOG) 1 UNIT/0.01 ML UNIT SC ×4 (08:01→20:54)
[2024-10-17] MEDS: METOPROLOL SUCCINATE XL 25 MG TABCR 50 MG PO (08:03)
[2024-10-17 09:20] LABS: Cult AFB Sendout- Sputum* See Sep Rpt
--- NOTE | 2024-10-17 09:55 | ESPR_ITS ---
<Statement entered by Dimas Carrillo MD - 10/17/24 14:36> Senior Resident Attestation: I supervised/discussed management plan with customer success intern physician Dr. Mcintosh, and was involved in the care of this patient. I personally saw and examined the patient and discussed the assessment and plan with the entire medicine team, including my attending. I agree with the assessment and plan as documented. No acute overnight events reported. Patient was seen and examined at bedside. He reports no new complaints. His blood culture grew GPC 1 out of 2, he was started on ceftriaxone azithromycin empirically. Pending ID recommendation for TB rule out. Patient's care was discussed with attending physician, Dr. Canela. Dimas Carrillo MD PGY-3. Documentation for date of: 10/17/24 Subjective Subjective Interval history: No overnight events. Evaluated at bedside. Bcx 1/2 grew GPC, likely contamination. Starting Rocephin 1g QD and Azithromycin 500mg PO for 3 days for soft areas of pneumonia coverage in left lung. Pt compliant with insulin now. ID consulted Cocci IgG positive. Started on fluconazole 400mg PO QD. (Duration is typically 6 to 12 weeks ) Exam Vital Signs Temp Pulse Resp BP Pulse Ox O2 Del Method 97.3 F 72 17 142/74 H 99 Room Air 10/17/24 08:00 10/17/24 08:04 10/17/24 08:00 10/17/24 08:04 10/17/24 08:00 10/17/24 08:00 Narrative Exam General: Well appearing, well nourished, in no distress. Oriented x 3, normal mood and affect . Ambulating without difficulty. Skin: Good turgor, no rash, unusual bruising or prominent lesions Head: Normocephalic, atraumatic, no visible or palpable masses, depressions, or scaring. Eyes: Visual acuity intact, conjunctiva clear, sclera non-icteric, EOM intact, PERRL, no exudates or hemorrhages Heart: No cardiomegaly or thrills; regular rate and rhythm, no murmur or gallop Lungs: Clear to auscultation and percussion. No rales, wheeze, or rhonchi Abdomen: Bowel sounds normal, no tenderness, organomegaly, masses, or hernia Back: Spine normal without deformity or tenderness, no CVA tenderness Extremities: No amputations or deformities, cyanosis, edema or varicosities, peripheral pulses intact Musculoskeletal: Normal gait and station. No misalignment, asymmetry, crepitation, defects, tenderness, masses, effusions, decreased range of motion, instability, atrophy or abnormal strength or tone in the head, neck, spine, ribs, pelvis or extremities. Psychiatric: Oriented X3, intact recent and remote memory, judgment and insight, normal mood and affect. Objective Labs 10/17/24 04:59 10/17/24 04:59 Labs: Laboratory Results - last 24 hr 10/15/24 10/17/24 17:30 04:59 WBC 8.2 RBC 4.81 Hgb 14.7 Hct 43.9 MCV 91 MCH 30.6 MCHC 33.5 RDW Std Deviation 42.9 Plt Count 205 Neut % (Auto) 47 Lymph % (Auto) 34 [place] % (Auto) 14 H Eos % (Auto) 4 Baso % (Auto) 1 Neut # (Auto) 3.9 Lymph # (Auto) 2.8 [place] # (Auto) 1.1 H Eos # (Auto) 0.3 Baso # (Auto) 0.1 Immature Gran # (Auto) 0.05 H Absolute Nucleated RBC 0.00 Immature Gran % 1 H Nucleated RBC % 0 Sodium 135 L Potassium 4.2 Chloride 100 Carbon Dioxide 26.4 Anion Gap 9 BUN 10 Creatinine 0.7 Estim Creat Clear Calc 118.0 eGFR > 60 BUN/Creatinine Ratio 14 Glucose 208 H Calculated Osmolality 275 Calcium 9.3 Corrected Calcium 9.3 Phosphorus 3.7 Magnesium 2.0 Total Bilirubin 0.9 AST 95 H ALT 132 H Alkaline Phosphatase 130 H Total Protein 7.4 Albumin 4.2 Globulin 3.2 Albumin/Globulin Ratio 1.3 Coccidioides IgM Ab Negative Quality Measures Quality Measures VTE prophylaxis Assessment & Plan Assessment Current Active Medications: Generic Name Dose Route Start Last Admin Trade Name Freq PRN Reason Stop Dose Admin Acetaminophen 650 mg 10/15/24 20:34 Acetaminophen 325 Mg Tablet PO 11/14/24 20:33 Q6H PRN Fever >101.5 Acetaminophen 650 mg 10/15/24 20:39 Acetaminophen 325 Mg Tablet PO 11/14/24 20:38 Q6H PRN PAIN SCALE 1-3 (mild Hydrocodone Bitart/Acetaminophen 1 tab 10/15/24 20:39 10/16/24 22:36 Hydrocodone/Apap 5/325 Tablet PO 10/20/24 20:38 1 tab Q4HR PRN Administration PAIN SCALE 4-10(Mod-Sev Amlodipine Besylate 5 mg 10/16/24 09:00 10/17/24 08:04 Amlodipine Besylate 5 Mg Tablet PO 11/15/24 08:59 5 mg DAILY SYLVESTER Administration Dextrose 25 ml 10/16/24 21:35 Dextrose 50%-Water Inj 50 Ml Syringe IV 11/15/24 21:34 Q15MIN PRN BG 50-70 responsive npo pt Dextrose 50 ml 10/16/24 21:35 Dextrose 50%-Water Inj 50 Ml Syringe IV 11/15/24 21:34 Q15MIN PRN BG <50 OR BG <70 & pt unresponsive Enoxaparin Sodium 40 mg 10/16/24 09:00 10/17/24 08:12 Enoxaparin Sod Inj 40 Mg/0.4 Ml Syringe SC 10/30/24 08:59 Not Given QDAY SYLVESTER Glucagon 1 mg 10/16/24 21:35 Glucagon Inj 1 Mg Vial IM Q15MIN PRN BG <70, and no IV access Insulin Human Lispro 0 unit 10/16/24 22:00 10/17/24 08:01 Insulin Lispro (Admelog) 1 Unit/0.01 Ml Unit SC 11/15/24 21:59 3 unit ACHS SYLVESTER Administration Protocol Lisinopril 40 mg 10/16/24 09:00 10/17/24 08:03 Lisinopril 20 Mg Tablet PO 11/15/24 08:59 40 mg DAILY SYLVESTER Administration Protocol Metoprolol Succinate 50 mg 10/16/24 09:00 10/17/24 08:03 Metoprolol Succinate Xl 25 Mg Tabcr PO 11/15/24 08:59 50 mg DAILY SYLVESTER Administration Ondansetron HCl 4 mg 10/15/24 20:39 Ondansetron Inj 2 Mg/Ml Inj 2 Ml IVP 11/14/24 20:38 Q6H PRN NAUSEA OR VOMITING Protocol Sennosides 1 tab 10/15/24 20:39 Senna Tablet PO 11/14/24 20:38 QDAY PRN constipation Protocol Plan 49M with type 2 DM and HTN, presenting with subacute hemoptysis and CT showing a thin-walled cavitary lesion (3.84 mm) in JENNIFER with adjacent pneumonia. Infectious etiology favored; malignancy not excluded. Hemodynamically stable, afebrile, saturating well on room air. Pending TB r/o. AFB-NAAT sent-out lab ordered. # Chronic Coccidiomycosis # Hemoptysis # Cavity lesion on left upper lobe # TB rule out Thin-walled cavitary lesion with adjacent pneumonia; no massive hemoptysis. Stable H/H, no respiratory distress. Infectious etiology (TB, bacterial, fungal) favored given history; occupational exposures and asbestos raise malignancy risk, but wall thickness <4 mm favors benign causes. 10/16 ESR 43, CRP 1.2 Plan: - Airborne isolation until TB ruled out - Pending AFB sputum cultures with NAAT ?3 q8h - TB Quantiferon pending - Cocci IgM Ab negative, Cocci IgG POSITIVE - Started on fluconazole 400mg PO QD. (Duration is typically 6 to 12 weeks ) - HIV Ab/Ag pending - Legionella Ag pending - Pending sputum culture - Monitor for recurrent or massive hemoptysis - Trend CBC - ID consulted, appreciates recs # Pneumonia, unspecified organism # Leukocytosis - resolved 10/16 Left lung involvement adjacent to cavity; mild leukocytosis, no hypoxia. Plan: - Started Azithromycin 500mg (10/17 ~ 10/19) - Started Rocephin 1g (10/17 ~ 10/24) - Bcx 1/2 GPC+, pending final result. - Monitor vitals, fever curve, oxygenation # Type 2 Diabetes Mellitus without complications Bedside blood glucose is 138 Plan: - Hold home Basaglar 40 units daily - Start ISS - Monitor BG AC & HS - Adjust regimen based on inpatient trends #Transaminitis - downtrending Initial AST 125, ALT 155. Likely secondary to chronic alcohol use. Plan: - continue to monitor LFTs - Outpt PCP followup. # Hypertension Currently mildly elevated BP; on home benazepril. Plan: - Continue home medication lisinopril 40mg PO QD, metoprolo succ 50mg PO QD - Monitor BP #Effusion of left knee (chronic swelling) No signs of acute infection. Plan: - Review prior MRI results - Outpatient ortho follow-up Health Maintenance Disposition: Admit to medicine, airborne isolation Feeding: Low carb consistent diet Thromboprophylaxis: Lovenox GI prophylaxis: Not indicated at this time Code Status: Full code Case discussed with my senior resident Dr. Carrillo Case discussed with my attending Dr. Rola Mcintosh DO PGY 1 Attending Provider Attestation/Addendum I have examined the patient, reviewed labs and imaging findings, discussed the case with the resident(s), and reviewed entered orders. I agree with the plan of care as outlined in this note, with these additional summaries/recommendations: Patient seen at bedside. No acute overnight events. Patient is anxious to get back home to his 5 children and has no other acute complaints or new symptoms to report today. Patient admitted for active TB rule out in the setting of hemoptysis and cavitary lung lesion. CT scan was significant for thick walled 22X 20 mm cavitary lesion in the left upper lobe and soft areas of pneumonia in the lung. 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 He denies any significant travel. Patient admitted for hemoptysis in the setting of cavitary lesion and superimposed bacterial pneumonia. Active tuberculosis needs to be ruled out. AFBs x 3 collected and will be sent out on Saturday. quantiferon test pending. cocci serology IgG now returned positive and start fluconazole. Symptoms most likely related to coccidioidomycosis although active TB still needs to be ruled out. We will follow-up with the county and infectious disease specialist. 1 of 2 blood cultures preliminarily showing GPC which is likely contamination. Low suspicion for bacteremia at this time. Continue IV antibiotics. Continue basal and bolus insulin for diabetes mellitus type 2. Target blood sugar of 140-180 while hospitalized. Minimal transaminitis present and we will continue to monitor. Avoid hepatotoxic agents. Patient updated on the plan and agreement. All questions answered to satisfaction. Please see residents note for additional details and management. Dr. Rola MD
--- NOTE | 2024-10-17 10:36 | PC.SS ---
1036-Pt is a 49 yo male 49M admitted on 10/15 for hemoptysis and pneumonia, r/o TB. Per morning rounding, there is no d/c date at this time and pt will stay.
[2024-10-17] MEDS: cefTRIAXone/D5w 1gm IV premix 1 GM/50 ML BAG IV (11:17)
[2024-10-17] MEDS: AZITHROMYCIN 250 MG TABLET 500 MG PO (11:17)
[2024-10-17 14:44] LABS: Cocci Serology, IgG Positive (Negative)
[2024-10-17 14:45] LABS: Cocid Sro, CF/ID (UCD) NO CHG* See Sep Rpt
[2024-10-17] MEDS: FLUCONAZOLE 100 MG TABLET 400 MG PO (16:15)
[2024-10-17] MEDS: HYDROcodone/APAP 5/325 TABLET 1 TAB PO (21:04)
[2024-10-18] VITALS (10 sets, daily range): BP systolic 109–159; BP diastolic 64–97; PULSE 20–102; RESP 16–96; TEMP 36.1–36.3; O2SAT 95–100
[2024-10-18 06:25] LABS: Basophils # (Auto) 0.1 Thou/mm3 (0.0-0.2); Basophils % (Auto) 1 % (0-2.5); Eosinophils # (Auto) 0.3 Thou/mm3 (0.0-0.5); Eosinophils % (Auto) 4 % (0-10); Hematocrit 44.9 % (41.0-53.0); Hemoglobin 15.1 g/dL (13.5-16.0); Immature Granulocytes Auto 0.04 Thou/mm3 (0.00-0.00); Lymphocytes # (Auto) 2.6 Thou/mm3 (1.0-4.8); Lymphocytes % (Auto) 32 % (10-50); Mean Corpuscular HGB Conc 33.6 g/dl (31.0-37.0); Mean Corpuscular Hemoglobin 30.6 pg (25.0-35.0); Mean Corpuscular Volume 91 fL (80-100); Monocytes # (Auto) 1.0 Thou/mm3 (0.0-0.8); Monocytes % (Auto) 12 % (0-12); Neutrophils # (Auto) 4.1 Thou/mm3 (1.8-7.7); Neutrophils % (Auto) 50 % (37-80); Nucleated Red Blood Cell # 0.00 Thou/mm3 (0.00-0.00); Nucleated Red Blood Cell % 0 /100 WBC (0); Platelet Count 227 Thou/mm3 (140-440); RDW Standard Deviation 42.3 fL (35.1-43.9); Red Blood Count 4.94 Miln/mm3 (4.50-5.90); White Blood Count 8.1 Thou/mm3 (3.8-10.6)
[2024-10-18 06:55] LABS: Alanine Aminotransferase 157 U/L (10-49); Albumin, Serum 4.4 gm/dL (3.5-5.0); Albumin/Globulin Ratio 1.4 (1.2-2.2); Alkaline Phosphatase 122 U/L (46-116); Anion Gap 11 (7-16); Aspartate Amino Transferase 132 U/L (0-34); BUN/Creatinine Ratio 14 Ratio (12-20); Bilirubin,Total 0.8 mg/dL (0.3-1.2); Blood Urea Nitrogen 10 mg/dL (9-23); Calcium 9.8 mg/dL (8.3-10.6); Calcium (Corrected) 9.8 mg/dL (8.5-10.1); Carbon Dioxide 25.1 mMol/L (20.0-31.0); Chloride 100 mMol/L (98-107); Creatinine (Component) 0.7 mg/dL (0.6-1.3); Estimated Creatinine Clearance 123.6 mL/min (>60); Globulin 3.2 gm/dL (2.3-3.5); Glucose 202 mg/dL (74-106); Magnesium 1.7 mg/dL (1.6-2.6); Osmolality,Calculated 276 (275-295); Phosphorous 4.1 mg/dL (2.4-5.1); Potassium 4.6 mMol/L (3.4-5.1); Sodium 136 mMol/L (136-145); Total Protein 7.6 gm/dL (5.7-8.2); eGFR > 60 See Note
[2024-10-18] MEDS: INSULIN LISPRO (AdmeLOG) 1 UNIT/0.01 ML UNIT SC ×4 (08:13→20:27)
[2024-10-18] MEDS: AZITHROMYCIN 250 MG TABLET 500 MG PO (08:14)
[2024-10-18] MEDS: METOPROLOL SUCCINATE XL 25 MG TABCR 50 MG PO (08:14)
[2024-10-18] MEDS: FLUCONAZOLE 100 MG TABLET 400 MG PO (08:15)
[2024-10-18] MEDS: ENOXAPARIN SOD INJ 40 MG/0.4 ML SYRINGE SC (08:16)
[2024-10-18] MEDS: cefTRIAXone/D5w 1gm IV premix 1 GM/50 ML BAG IV (08:16)
[2024-10-18] MEDS: HYDROcodone/APAP 5/325 TABLET 1 TAB PO ×2 (09:31→20:27)
--- NOTE | 2024-10-18 09:51 | ESPR_ITS ---
<Statement entered by Parker Betts MD - 10/19/24 16:57> Patient was examined and case was reviewed with team including attending physician. Note reviewed, I agree with most of its contents and agree with the patient's care as documented by Dr. Sylvester Patient seen today at the bedside found awake, alert, orientedx3. No overnight events reported. Vital signs stable at this time. Currently pending AFBs for TB rule out. Liver enzymes elevated likely secondary to fluconazole for cocci. Wiill continue to follow labs and possibly adjust dose accordingly Parker Betts MD PGY-2 Documentation for date of: 10/18/24 Subjective Subjective Interval history: NAEO Patient denies headache, chest pain, cough, hemoptysis, abdominal pain. Of note, patient reports left knee pain. He had an MRI done 09/16 showed horizontal linear tear of the medial meniscus, ACL sprain. Counseled patient on rest, ice, compression, and elevation. Exam Vital Signs Temp Pulse Resp BP Pulse Ox O2 Del Method 97.1 F 70 19 136/64 H 99 Room Air 10/18/24 08:00 10/18/24 08:56 10/18/24 08:56 10/18/24 08:15 10/18/24 08:00 10/18/24 04:00 Narrative Exam General: No acute distress, well nourished Eye: PERRL, EOMI, normal conjunctiva, no scleral icterus HENT: Normocephalic, atraumatic, normal hearing, moist oral mucosa Neck: Supple, non-tender, no JVD, no lymphadenopathy Lungs: Clear to auscultation bilaterally, non-labored respirations, symmetric chest rise, no use of accessory muscles Heart: Normal S1 and S2, no S3 or S4 appreciated. Normal rate and regular rhythm, no murmurs, rubs gallops, or edema. Peripheral pulses intact bilaterally, capillary refill brisk distally Abdomen: Soft, non-tender, non-distended, normal bowel sounds. No guarding or rebound tenderness. Musculoskeletal: Normal range of motion and strength, TTP of lateral aspect of left knee, L knee swelling, no warmth or erythema Skin: Skin is warm, dry, no rashes or lesions. Neurologic: Alert, awake and oriented x3. CN II-XII grossly intact. No focal neuro deficits. No signs of meningeal irritation noted. Psychiatric: Cooperative, appropriate mood and affect Objective Labs 10/19/24 05:41 10/19/24 05:41 Labs: Laboratory Results - last 24 hr 10/15/24 10/18/24 17:30 04:20 WBC 8.1 RBC 4.94 Hgb 15.1 Hct 44.9 MCV 91 MCH 30.6 MCHC 33.6 RDW Std Deviation 42.3 Plt Count 227 Neut % (Auto) 50 Lymph % (Auto) 32 [place] % (Auto) 12 Eos % (Auto) 4 Baso % (Auto) 1 Neut # (Auto) 4.1 Lymph # (Auto) 2.6 [place] # (Auto) 1.0 H Eos # (Auto) 0.3 Baso # (Auto) 0.1 Immature Gran # (Auto) 0.04 H Absolute Nucleated RBC 0.00 Immature Gran % 1 H Nucleated RBC % 0 Sodium 136 Potassium 4.6 Chloride 100 Carbon Dioxide 25.1 Anion Gap 11 BUN 10 Creatinine 0.7 Estim Creat Clear Calc 123.6 eGFR > 60 BUN/Creatinine Ratio 14 Glucose 202 H Calculated Osmolality 276 Calcium 9.8 Corrected Calcium 9.8 Phosphorus 4.1 Magnesium 1.7 Total Bilirubin 0.8 AST 132 H ALT 157 H Alkaline Phosphatase 122 H Total Protein 7.6 Albumin 4.4 Globulin 3.2 Albumin/Globulin Ratio 1.4 Coccidioides IgG Ab Positive A Quality Measures Quality Measures VTE prophylaxis Assessment & Plan Assessment Current Active Medications: Generic Name Dose Route Start Last Admin Trade Name Freq PRN Reason Stop Dose Admin Acetaminophen 650 mg 10/15/24 20:34 Acetaminophen 325 Mg Tablet PO 11/14/24 20:33 Q6H PRN Fever >101.5 Acetaminophen 650 mg 10/15/24 20:39 Acetaminophen 325 Mg Tablet PO 11/14/24 20:38 Q6H PRN PAIN SCALE 1-3 (mild Hydrocodone Bitart/Acetaminophen 1 tab 10/15/24 20:39 10/18/24 09:31 Hydrocodone/Apap 5/325 Tablet PO 10/20/24 20:38 1 tab Q4HR PRN Administration PAIN SCALE 4-10(Mod-Sev Amlodipine Besylate 5 mg 10/16/24 09:00 10/18/24 08:14 Amlodipine Besylate 5 Mg Tablet PO 11/15/24 08:59 5 mg DAILY SYLVESTER Administration Azithromycin 500 mg 10/17/24 11:00 10/18/24 08:14 Azithromycin 250 Mg Tablet PO 10/19/24 09:01 500 mg QDAY SYLVESTER Administration Dextrose 25 ml 10/16/24 21:35 Dextrose 50%-Water Inj 50 Ml Syringe IV 11/15/24 21:34 Q15MIN PRN BG 50-70 responsive npo pt Dextrose 50 ml 10/16/24 21:35 Dextrose 50%-Water Inj 50 Ml Syringe IV 11/15/24 21:34 Q15MIN PRN BG <50 OR BG <70 & pt unresponsive Enoxaparin Sodium 40 mg 10/16/24 09:00 10/18/24 08:16 Enoxaparin Sod Inj 40 Mg/0.4 Ml Syringe SC 10/30/24 08:59 40 mg QDAY SYLVESTER Administration Fluconazole 400 mg 10/17/24 15:15 10/18/24 08:15 Fluconazole 100 Mg Tablet PO 10/24/24 15:14 400 mg QDAY SYLVESTER Administration Glucagon 1 mg 10/16/24 21:35 Glucagon Inj 1 Mg Vial IM Q15MIN PRN BG <70, and no IV access Ceftriaxone Sodium/Dextrose 1 gm in 50 mls @ 100 mls/hr 10/17/24 10:50 10/18/24 08:16 Rocephin/D5w 1gm Iv Premix IV 10/24/24 10:49 100 mls/hr QDAY SYLVESTER Administration Insulin Human Lispro 0 unit 10/16/24 22:00 10/18/24 08:13 Insulin Lispro (Admelog) 1 Unit/0.01 Ml Unit SC 11/15/24 21:59 2 unit ACHS SYLVESTER Administration Protocol Lisinopril 40 mg 10/16/24 09:00 10/18/24 08:15 Lisinopril 20 Mg Tablet PO 11/15/24 08:59 40 mg DAILY SYLVESTER Administration Protocol Metoprolol Succinate 50 mg 10/16/24 09:00 10/18/24 08:14 Metoprolol Succinate Xl 25 Mg Tabcr PO 11/15/24 08:59 50 mg DAILY SYLVESTER Administration Ondansetron HCl 4 mg 10/15/24 20:39 Ondansetron Inj 2 Mg/Ml Inj 2 Ml IVP 11/14/24 20:38 Q6H PRN NAUSEA OR VOMITING Protocol Sennosides 1 tab 10/15/24 20:39 Senna Tablet PO 11/14/24 20:38 QDAY PRN constipation Protocol Plan 49M with type 2 DM and HTN, presenting with subacute hemoptysis and CT showing a thin-walled cavitary lesion (3.84 mm) in JENNIFER with adjacent pneumonia. Infectious etiology favored; malignancy not excluded. Hemodynamically stable, afebrile, saturating well on room air. Pending TB r/o. AFB-NAAT sent-out lab ordered. # Chronic Coccidiomycosis # Hemoptysis # Cavity lesion on left upper lobe # TB rule out Initially presented with subacute hemoptysis Thin-walled cavitary lesion with adjacent pneumonia. Stable H/H, no respiratory distress. Occupational exposures and asbestos raise malignancy risk, but wall thickness <4 mm favors benign causes. 10/16 ESR 43, CRP 1.2 Cocci IgG positive, cocci IgM negative Plan: - Airborne isolation until TB ruled out - Pending AFB sputum cultures with NAAT ?3 q8h - TB Quantiferon pending - Continue fluconazole 400mg PO QD. (Duration is typically 6 to 12 weeks) - HIV Ab/Ag pending - Legionella Ag pending - Pending Aspergillus Ag - Monitor for recurrent or massive hemoptysis - Trend CBC - ID consulted, appreciates recs # Pneumonia, unspecified organism # Leukocytosis - resolved 10/16 Left lung involvement adjacent to cavity; mild leukocytosis, no hypoxia. Afebrile, no leukocytosis 10/18 Plan: - Continue Azithromycin 500mg (10/17 ~ 10/19), Rocephin 1g (10/17 ~ 10/24) - Bcx 1/2 GPC+, pending final result. - Monitor vitals, CBC # Type 2 Diabetes Mellitus without complications A1C 9.1 Home med: Basaglar 40 U daily Plan: - ISS - step 2 - Monitor BG #Transaminitis Initial AST 125, ALT 155. Likely secondary to chronic alcohol use. Denies abdominal pain. Abdomen soft, nontender, nondistended on physical exam Plan: - continue to monitor LFTs - Outpt PCP followup # Hypertension Currently mildly elevated BP; on home benazepril. Plan: - Continue home medication lisinopril 40mg PO QD, metoprolol succ 50mg PO QD - Monitor BP #Effusion of left knee (chronic swelling) No signs of acute infection. Plan: - Rest, Ice, Compression, Elevation - Outpatient ortho follow-up Health Maintenance Disposition: Pending TB results Feeding: Low carb consistent diet Thromboprophylaxis: Lovenox GI prophylaxis: none Code Status: Full code Case discussed with Dr. Collado and Dr. Dallas Sylvester MD PGY1 Attending Provider Attestation/Addendum I, Anneliese Haynes, , attest that I was physically present for the farrell portions of the service and evaluated the patient with the resident and I reviewed and discussed the case with the resident and agree with the resident's findings and plans of care as documented above Patient seen and evaluated this AM. Patient states he is feeling well. He states that he had some blood tinged sputum at night, but has resolved. He denies any shortness of breath. Pending AFBs. Patient states he lives with his five children. He denies any exposure to TB, service or previous history of incarceration.
[2024-10-19] VITALS (12 sets, daily range): BP systolic 112–129; BP diastolic 76–93; PULSE 64–83; RESP 15–98; TEMP 36–36.3; O2SAT 97–99
[2024-10-19] MEDS: HYDROcodone/APAP 5/325 TABLET 1 TAB PO ×3 (01:25→22:13)
[2024-10-19 06:32] LABS: Basophils # (Auto) 0.1 Thou/mm3 (0.0-0.2); Basophils % (Auto) 1 % (0-2.5); Eosinophils # (Auto) 0.3 Thou/mm3 (0.0-0.5); Eosinophils % (Auto) 4 % (0-10); Hematocrit 45.3 % (41.0-53.0); Hemoglobin 15.0 g/dL (13.5-16.0); Immature Granulocytes Auto 0.05 Thou/mm3 (0.00-0.00); Lymphocytes # (Auto) 2.7 Thou/mm3 (1.0-4.8); Lymphocytes % (Auto) 34 % (10-50); Mean Corpuscular HGB Conc 33.1 g/dl (31.0-37.0); Mean Corpuscular Hemoglobin 30.4 pg (25.0-35.0); Mean Corpuscular Volume 92 fL (80-100); Monocytes # (Auto) 1.0 Thou/mm3 (0.0-0.8); Monocytes % (Auto) 13 % (0-12); Neutrophils # (Auto) 3.9 Thou/mm3 (1.8-7.7); Neutrophils % (Auto) 48 % (37-80); Nucleated Red Blood Cell # 0.00 Thou/mm3 (0.00-0.00); Nucleated Red Blood Cell % 0 /100 WBC (0); Platelet Count 219 Thou/mm3 (140-440); RDW Standard Deviation 42.4 fL (35.1-43.9); Red Blood Count 4.93 Miln/mm3 (4.50-5.90); White Blood Count 8.1 Thou/mm3 (3.8-10.6)
[2024-10-19 07:06] LABS: Alanine Aminotransferase 209 U/L (10-49); Albumin, Serum 4.4 gm/dL (3.5-5.0); Albumin/Globulin Ratio 1.3 (1.2-2.2); Alkaline Phosphatase 113 U/L (46-116); Anion Gap 9 (7-16); Aspartate Amino Transferase 172 U/L (0-34); BUN/Creatinine Ratio 13 Ratio (12-20); Bilirubin,Total 0.7 mg/dL (0.3-1.2); Blood Urea Nitrogen 9 mg/dL (9-23); Calcium 9.9 mg/dL (8.3-10.6); Calcium (Corrected) 9.9 mg/dL (8.5-10.1); Carbon Dioxide 27.7 mMol/L (20.0-31.0); Chloride 98 mMol/L (98-107); Creatinine (Component) 0.7 mg/dL (0.6-1.3); Estimated Creatinine Clearance 123.6 mL/min (>60); Globulin 3.3 gm/dL (2.3-3.5); Glucose 205 mg/dL (74-106); Magnesium 1.5 mg/dL (1.6-2.6); Osmolality,Calculated 274 (275-295); Phosphorous 3.9 mg/dL (2.4-5.1); Potassium 4.3 mMol/L (3.4-5.1); Sodium 135 mMol/L (136-145); Total Protein 7.7 gm/dL (5.7-8.2); eGFR > 60 See Note
[2024-10-19] MEDS: INSULIN LISPRO (AdmeLOG) 1 UNIT/0.01 ML UNIT SC ×4 (07:39→22:10)
--- NOTE | 2024-10-19 08:16 | ESPR_ITS ---
<Statement entered by Parker Betts MD - 10/19/24 21:05> Patient was examined and case was reviewed with team including attending physician. Note reviewed, I agree with most of its contents and agree with the patient's care as documented by Dr. Sylvester Patient seen today at the bedside found awake, alert, orientedx3. No overnight events reported. Vital signs stable at this time. No new episodes of hemptypsis noted. Patient is cocci positive and was started on Fluconazole after initiation of medication LFTs began uptrending, IgM negative for cocci however positive IgG likely a past or resolving infection, will re-evaluate. Additionally patient currently on Antibiotics for bacterial pneumonia. Patient also pending AFB results as part of TB rule out. Parker Betts MD PGY-2 Documentation for date of: 10/19/24 Subjective Subjective Interval history: NAEO. VSS. BG 205 today. LFT continue to uptrend. Patient evaluated at bedside. Denies any symptoms. Exam Vital Signs Temp Pulse Resp BP Pulse Ox O2 Del Method 97.0 F 83 18 116/83 99 Room Air 10/19/24 04:00 10/19/24 07:54 10/19/24 04:00 10/19/24 04:00 10/19/24 04:00 10/19/24 04:00 Narrative Exam General: No acute distress, well nourished Eye: PERRL, EOMI, normal conjunctiva, no scleral icterus HENT: Normocephalic, atraumatic, normal hearing, moist oral mucosa Neck: Supple, non-tender, no JVD, no lymphadenopathy Lungs: Clear to auscultation bilaterally, non-labored respirations, symmetric chest rise, no use of accessory muscles Heart: Normal S1 and S2, no S3 or S4 appreciated. Normal rate and regular rhythm, no murmurs, rubs gallops, or edema. Peripheral pulses intact bilaterally, capillary refill brisk distally Abdomen: Soft, non-tender, non-distended, normal bowel sounds. No guarding or rebound tenderness. Musculoskeletal: Normal range of motion and strength, TTP of lateral aspect of left knee, L knee swelling, no warmth or erythema Skin: Skin is warm, dry, no rashes or lesions. Neurologic: Alert, awake and oriented x3. CN II-XII grossly intact. No focal neuro deficits. No signs of meningeal irritation noted. Psychiatric: Cooperative, appropriate mood and affect Objective Labs 10/19/24 05:41 10/19/24 05:41 Labs: Laboratory Results - last 24 hr 10/19/24 05:41 WBC 8.1 RBC 4.93 Hgb 15.0 Hct 45.3 MCV 92 MCH 30.4 MCHC 33.1 RDW Std Deviation 42.4 Plt Count 219 Neut % (Auto) 48 Lymph % (Auto) 34 [place] % (Auto) 13 H Eos % (Auto) 4 Baso % (Auto) 1 Neut # (Auto) 3.9 Lymph # (Auto) 2.7 [place] # (Auto) 1.0 H Eos # (Auto) 0.3 Baso # (Auto) 0.1 Immature Gran # (Auto) 0.05 H Absolute Nucleated RBC 0.00 Immature Gran % 1 H Nucleated RBC % 0 Sodium 135 L Potassium 4.3 Chloride 98 Carbon Dioxide 27.7 Anion Gap 9 BUN 9 Creatinine 0.7 Estim Creat Clear Calc 123.6 eGFR > 60 BUN/Creatinine Ratio 13 Glucose 205 H Calculated Osmolality 274 L Calcium 9.9 Corrected Calcium 9.9 Phosphorus 3.9 Magnesium 1.5 L Total Bilirubin 0.7 AST 172 H ALT 209 H Alkaline Phosphatase 113 Total Protein 7.7 Albumin 4.4 Globulin 3.3 Albumin/Globulin Ratio 1.3 Quality Measures Quality Measures VTE prophylaxis Assessment & Plan Assessment Current Active Medications: Generic Name Dose Route Start Last Admin Trade Name Freq PRN Reason Stop Dose Admin Acetaminophen 650 mg 10/15/24 20:34 Acetaminophen 325 Mg Tablet PO 11/14/24 20:33 Q6H PRN Fever >101.5 Acetaminophen 650 mg 10/15/24 20:39 Acetaminophen 325 Mg Tablet PO 11/14/24 20:38 Q6H PRN PAIN SCALE 1-3 (mild Hydrocodone Bitart/Acetaminophen 1 tab 10/15/24 20:39 10/19/24 01:25 Hydrocodone/Apap 5/325 Tablet PO 10/20/24 20:38 1 tab Q4HR PRN Administration PAIN SCALE 4-10(Mod-Sev Amlodipine Besylate 5 mg 10/16/24 09:00 10/18/24 08:14 Amlodipine Besylate 5 Mg Tablet PO 11/15/24 08:59 5 mg DAILY SYLVESTER Administration Azithromycin 500 mg 10/17/24 11:00 10/18/24 08:14 Azithromycin 250 Mg Tablet PO 10/19/24 09:01 500 mg QDAY SYLVESTER Administration Dextrose 25 ml 10/16/24 21:35 Dextrose 50%-Water Inj 50 Ml Syringe IV 11/15/24 21:34 Q15MIN PRN BG 50-70 responsive npo pt Dextrose 50 ml 10/16/24 21:35 Dextrose 50%-Water Inj 50 Ml Syringe IV 11/15/24 21:34 Q15MIN PRN BG <50 OR BG <70 & pt unresponsive Enoxaparin Sodium 40 mg 10/16/24 09:00 10/18/24 08:16 Enoxaparin Sod Inj 40 Mg/0.4 Ml Syringe SC 10/30/24 08:59 40 mg QDAY SYLVESTER Administration Fluconazole 400 mg 10/17/24 15:15 10/18/24 08:15 Fluconazole 100 Mg Tablet PO 10/24/24 15:14 400 mg QDAY SYLVESTER Administration Glucagon 1 mg 10/16/24 21:35 Glucagon Inj 1 Mg Vial IM Q15MIN PRN BG <70, and no IV access Ceftriaxone Sodium/Dextrose 1 gm in 50 mls @ 100 mls/hr 10/17/24 10:50 10/18/24 08:16 Rocephin/D5w 1gm Iv Premix IV 10/24/24 10:49 100 mls/hr QDAY SYLVESTER Administration Insulin Human Lispro 0 unit 10/16/24 22:00 10/19/24 07:39 Insulin Lispro (Admelog) 1 Unit/0.01 Ml Unit SC 11/15/24 21:59 3 unit ACHS SYLVESTER Administration Protocol Lisinopril 40 mg 10/16/24 09:00 10/18/24 08:15 Lisinopril 20 Mg Tablet PO 11/15/24 08:59 40 mg DAILY SYLVESTER Administration Protocol Metoprolol Succinate 50 mg 10/16/24 09:00 10/18/24 08:14 Metoprolol Succinate Xl 25 Mg Tabcr PO 11/15/24 08:59 50 mg DAILY SYLVESTER Administration Ondansetron HCl 4 mg 10/15/24 20:39 Ondansetron Inj 2 Mg/Ml Inj 2 Ml IVP 11/14/24 20:38 Q6H PRN NAUSEA OR VOMITING Protocol Sennosides 1 tab 10/15/24 20:39 Senna Tablet PO 11/14/24 20:38 QDAY PRN constipation Protocol Plan 49M with type 2 DM and HTN, presenting with subacute hemoptysis and CT showing a thin-walled cavitary lesion (3.84 mm) in JENNIFER with adjacent pneumonia. Infectious etiology favored; malignancy not excluded. Hemodynamically stable, afebrile, saturating well on room air. Pending TB r/o. AFB-NAAT sent-out lab ordered. # Chronic Coccidiomycosis # Hemoptysis # Cavity lesion on left upper lobe # TB rule out Initially presented with subacute hemoptysis Thin-walled cavitary lesion with adjacent pneumonia. Stable H/H, no respiratory distress. Occupational exposures and asbestos raise malignancy risk, but wall thickness <4 mm favors benign causes. 10/16 ESR 43, CRP 1.2 Cocci IgG positive, cocci IgM negative HIV negative Sputum gram stain and cx unremarkable Plan: - Continue fluconazole 400mg PO QD. (Duration is typically 6 to 12 weeks) - Airborne isolation until TB ruled out - Pending AFB sputum cultures with NAAT ?3 q8h - TB Quantiferon pending - Legionella Ag pending - Pending Aspergillus Ag - Monitor for recurrent or massive hemoptysis - Trend CBC - ID consulted, appreciates recs # Pneumonia, unspecified organism # Leukocytosis - resolved 10/16 Left lung involvement adjacent to cavity; mild leukocytosis, no hypoxia. Afebrile, no leukocytosis 10/18 Plan: - ID consulted, appreciate recs - Cefuroxime 500 mg PO BID (10/19 - ) - Bcx 1/2 GPC+, pending final result. - Monitor vitals, CBC # Type 2 Diabetes Mellitus without complications A1C 9.1 Home med: Basaglar 40 U daily Plan: - 10U Glargine daily - ISS - step 2 - Monitor BG #Transaminitis - uptrending Initial AST 125, ALT 155. Likely secondary to chronic alcohol use. Denies abdominal pain. Abdomen soft, nontender, nondistended on physical exam Uptrend most like 2/2 fluconazole, though pt had elevated AST and ALT prior to fluconazole initiation. No underlying kidney dz. Plan: - Continue to monitor LFTs - Outpt PCP followup # Hypertension Home med: Amlodipine 5 mg daily, benazepril 40 mg daily, metoprolol 50 mg daily Plan: - Lisinopril 40mg PO QD - Metoprolol succ 50mg PO QD - Amlodipine 5 mg daily - Monitor BP #Effusion of left knee (chronic swelling) No signs of acute infection. Plan: - Rest, Ice, Compression, Elevation - Outpatient ortho follow-up Health Maintenance Disposition: Pending TB results Feeding: Low carb consistent diet Thromboprophylaxis: Lovenox GI prophylaxis: none Bowel reg: Senna as needed Pain mgmt: Tylenol, [place]wood 5/325 mg p.o. q4h Code Status: Full code Case discussed with Dr. Collado and Dr. Dallas Sylvester MD PGY1 Attending Provider Attestation/Addendum I, Anneliese Haynes DO, attest that I was physically present for the farrell portions of the service and evaluated the patient with the resident and I reviewed and discussed the case with the resident and agree with the resident's findings and plans of care as documented above Patient seen and eval this a.m. He states that he is doing well. However, he is quite upset since he is unable to help his kids get ready for first day of school. He otherwise feels well currently on fluconazole. We are pending AFBs at this time. Uptitrating insulin at this time as patient takes Lantus 40 units daily. However, since diet is different from home, will start patient on Lantus 10 units daily and uptitrate as needed. Patient remains on isolation at this time.
--- NOTE | 2024-10-19 09:06 | ESPR_ITS ---
Subjective Subjective Interval history: rul lesion. radiology unaware of stats favoring cocci locally but their thoughts ok. pt has produced sputum. has children at home, ages 19, 15,13, 12, 9 Exam Vital Signs Temp Pulse Resp BP Pulse Ox O2 Del Method 96.9 F 73 18 128/92 H 99 Room Air 10/19/24 08:00 10/19/24 08:00 10/19/24 08:00 10/19/24 08:00 10/19/24 08:00 10/19/24 08:00 Narrative Exam if afb neg , cavities can be caused by tumors or infection and cocci and tb are possible, he is a nearly life long [place] resident Objective - Internal Medicine Labs 10/19/24 05:41 10/19/24 05:41 Labs: Laboratory Results - last 24 hr 10/19/24 05:41 WBC 8.1 RBC 4.93 Hgb 15.0 Hct 45.3 MCV 92 MCH 30.4 MCHC 33.1 RDW Std Deviation 42.4 Plt Count 219 Neut % (Auto) 48 Lymph % (Auto) 34 [place] % (Auto) 13 H Eos % (Auto) 4 Baso % (Auto) 1 Neut # (Auto) 3.9 Lymph # (Auto) 2.7 [place] # (Auto) 1.0 H Eos # (Auto) 0.3 Baso # (Auto) 0.1 Immature Gran # (Auto) 0.05 H Absolute Nucleated RBC 0.00 Immature Gran % 1 H Nucleated RBC % 0 Sodium 135 L Potassium 4.3 Chloride 98 Carbon Dioxide 27.7 Anion Gap 9 BUN 9 Creatinine 0.7 Estim Creat Clear Calc 123.6 eGFR > 60 BUN/Creatinine Ratio 13 Glucose 205 H Calculated Osmolality 274 L Calcium 9.9 Corrected Calcium 9.9 Phosphorus 3.9 Magnesium 1.5 L Total Bilirubin 0.7 AST 172 H ALT 209 H Alkaline Phosphatase 113 Total Protein 7.7 Albumin 4.4 Globulin 3.3 Albumin/Globulin Ratio 1.3 Assessment & Plan A&P Narrative cavitary pulm lesion with hemoptysis and w/o wt loss. dm II htn hemoptysis await tests at [facility] and afb's. hopefully sent to [facility] for processing. if afb's neg, then pt does not have contagious tb I can see wed . if home before then and he wants home as his 19 y/o has a job at [employer] and he does not want to jeopardize that yougest at home is 9, so school aged, I can only see if cocci pos at reference lab and preferably chest imaging report provided. [facility] docs treat tb if positive, so may have to stay if afb pos for tb narrowed abx to po as precaution. afebrile Time Spent With Patient Time: Total time spent is greater than 50% in coordination of care (as documented) at patient's floor/unit and/or counseling patient:
[2024-10-19] MEDS: FLUCONAZOLE 100 MG TABLET 400 MG PO (09:37)
[2024-10-19] MEDS: AZITHROMYCIN 250 MG TABLET 500 MG PO (09:39)
[2024-10-19] MEDS: METOPROLOL SUCCINATE XL 25 MG TABCR 50 MG PO (09:39)
[2024-10-19] MEDS: INSULIN GLARGINE (Lantus) 5 UNIT/0.05 ML (PER 5 UNITS) 10 UNIT SC (10:44)
--- NOTE | 2024-10-19 13:33 | ESCONSULT_ITS ---
RE: KALI FORMAN : 1975 DATE OF CONSULTATION: 10/19/2024 REFERRING PHYSICIAN: Dr. Jc and Dr. Canela. REASON FOR CONSULTATION: Hemoptysis and cavitary lung disease. HISTORY OF PRESENT ILLNESS: The patient is being worked up for TB. His sputum were sent to the [facility], but it is now Saturday, so they will be processed later on today hopefully. His valley fever test was sent to [facility], but may not be processed till later this week. He does not have to wait here for that. If his AFBs are negative, he can go home. If his AFBs are positive, he may have to stay. This decision may be up to the health department if he is AFB positive. Our radiology department does put a lot of weight on the cavitary disease calling it TB most of the time, but statistics favor valley fever here locally. He reports no weight loss and he did have hemoptysis for about a month. 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 HIV is negative. PAST SURGICAL HISTORY: None. ALLERGIES: NONE NOTED. IMMUNIZATIONS: Last tetanus is not known. He does not take a flu shot and had not had pneumococcal vaccination. He has not had COVID vaccine. FAMILY HISTORY: His family history is positive for diabetes on his father's side. SOCIAL HISTORY: He lives independently. His children are ages 19, 15, 13, 12, and 9. Their mother left them at about age 9 when the youngest was about 6 months of age. Left them about 9 years ago. He is a nonsmoker. No significant alcohol or substance use. Exam is benign. The patient has no cough. He reports some improvement in hemoptysis and he is on fluconazole and oral cefuroxime, although cefuroxime was changed from Rocephin by me. The fluconazole is part of an all-oral regimen, so if his AFBs are negative, he may go home at your discretion. I can follow him up, but only if his sputum AFB's are neg and his Valley fever test is positive. His sputum cultures are negative. If his valley fever test is positive at [facility], I can also see him then but his primary will have to send the data with the referral. I will be happy to see him again p.r.n. I will probably see him on Saturday if he is still here. DT: 09:49:54 TT: 11:49:00 Ref: [id number] - TID: [id number] MTDD
--- NOTE | 2024-10-19 15:59 | PC.SS ---
SS follow up note; Patient is pending AFB's. Patient will discharge home when medically cleared.
[2024-10-20] VITALS (12 sets, daily range): BP systolic 116–132; BP diastolic 66–85; PULSE 63–87; RESP 17–19; TEMP 36.1–36.7; O2SAT 97–99
[2024-10-20 07:14] LABS: Hepatitis C Antibody Non Reactive (Non React)
--- NOTE | 2024-10-20 07:37 | ESPR_ITS ---
<Statement entered by Parker Betts MD - 10/20/24 14:49> Patient was examined and case was reviewed with team including attending physician. Note reviewed, I agree with most of its contents and agree with the patient's care as documented by Dr. Sylvester Patient seen today at the bedside found awake, alert, orientedx3. No overnight events reported. Vitals and labs reviewed. Fingerstick checks show glucose to be around the 200s insulin regimen optimized. Will continue to await results of AFB studies for TB rule out. Case discussed with my attending Dr. Dallas Betts MD PGY-2 Disclaimer: Despite multiple revisions, due to the dictation software being used, the document bellow may not be free of grammatical errors including phonetic/typographic errors. However, this does not deter from our commitment to providing health care in the patient's best interest in mind. Documentation for date of: 10/20/24 Subjective Subjective Interval history: NAEO. VSS. Hep C Ab negative. Still pending TB Quantiferon and AFB, legionella, aspergillus labs. Fingerstick glucose continues to be in the 200s. On Glargine 10U + SSI step 2. Changed to Glargine 15U QD + Lispro 3U w/ meals Patient evaluated at bedside. Denies new symptoms. Reports continued left knee pain, chronic. Has Tylenol 650 mg PRN. Exam Vital Signs Temp Pulse Resp BP Pulse Ox O2 Del Method 97.3 F 63 18 132/66 H 98 Room Air 10/20/24 04:00 10/20/24 04:26 10/20/24 04:00 10/20/24 04:00 10/20/24 04:00 10/20/24 04:00 Narrative Exam General: No acute distress, well nourished Eye: PERRL, EOMI, normal conjunctiva, no scleral icterus HENT: Normocephalic, atraumatic, normal hearing, moist oral mucosa Neck: Supple, non-tender, no JVD, no lymphadenopathy Lungs: Clear to auscultation bilaterally, non-labored respirations, symmetric chest rise, no use of accessory muscles Heart: Normal S1 and S2, no S3 or S4 appreciated. Normal rate and regular rhythm, no murmurs, rubs gallops, or edema. Peripheral pulses intact bilaterally, capillary refill brisk distally Abdomen: Soft, non-tender, non-distended, normal bowel sounds. No guarding or rebound tenderness. Musculoskeletal: Normal range of motion and strength, TTP of lateral aspect of left knee, L knee swelling, no warmth or erythema Skin: Skin is warm, dry, no rashes or lesions. Neurologic: Alert, awake and oriented x3. CN II-XII grossly intact. No focal neuro deficits. No signs of meningeal irritation noted. Psychiatric: Cooperative, appropriate mood and affect Objective Labs 10/20/24 06:01 10/20/24 06:01 Labs: Laboratory Results - last 24 hr 10/20/24 06:01 Hepatitis C Antibody Non Reactive Quality Measures Quality Measures VTE prophylaxis Assessment & Plan Assessment Current Active Medications: Generic Name Dose Route Start Last Admin Trade Name Freq PRN Reason Stop Dose Admin Acetaminophen 650 mg 10/15/24 20:34 Acetaminophen 325 Mg Tablet PO 11/14/24 20:33 Q6H PRN Fever >101.5 Acetaminophen 650 mg 10/15/24 20:39 Acetaminophen 325 Mg Tablet PO 11/14/24 20:38 Q6H PRN PAIN SCALE 1-3 (mild Hydrocodone Bitart/Acetaminophen 1 tab 10/15/24 20:39 10/19/24 22:13 Hydrocodone/Apap 5/325 Tablet PO 10/20/24 20:38 1 tab Q4HR PRN Administration PAIN SCALE 4-10(Mod-Sev Amlodipine Besylate 5 mg 10/16/24 09:00 10/19/24 09:38 Amlodipine Besylate 5 Mg Tablet PO 11/15/24 08:59 5 mg DAILY SYLVESTER Administration Cefuroxime Axetil 500 mg 10/19/24 21:00 10/19/24 22:04 Cefuroxime Axetil 250 Mg Tablet PO 10/21/24 12:00 500 mg BID SYLVESTER Administration Dextrose 25 ml 10/16/24 21:35 Dextrose 50%-Water Inj 50 Ml Syringe IV 11/15/24 21:34 Q15MIN PRN BG 50-70 responsive npo pt Dextrose 50 ml 10/16/24 21:35 Dextrose 50%-Water Inj 50 Ml Syringe IV 11/15/24 21:34 Q15MIN PRN BG <50 OR BG <70 & pt unresponsive Enoxaparin Sodium 40 mg 10/16/24 09:00 10/19/24 10:42 Enoxaparin Sod Inj 40 Mg/0.4 Ml Syringe SC 10/30/24 08:59 Not Given QDAY SYLVESTER Fluconazole 400 mg 10/17/24 15:15 10/19/24 09:37 Fluconazole 100 Mg Tablet PO 10/24/24 15:14 400 mg QDAY SYLVESTER Administration Glucagon 1 mg 10/16/24 21:35 Glucagon Inj 1 Mg Vial IM Q15MIN PRN BG <70, and no IV access Insulin Glargine 10 unit 10/19/24 10:15 10/19/24 10:44 Insulin Glargine (Lantus) 5 Unit/0.05 Ml (Per 5 Units) SC 11/18/24 10:14 10 unit QDAY SYLVESTER Administration Insulin Human Lispro 0 unit 10/16/24 22:00 10/19/24 22:10 Insulin Lispro (Admelog) 1 Unit/0.01 Ml Unit SC 11/15/24 21:59 4 unit ACHS SYLVESTER Administration Protocol Lisinopril 40 mg 10/16/24 09:00 10/19/24 09:38 Lisinopril 20 Mg Tablet PO 11/15/24 08:59 40 mg DAILY SYLVESTER Administration Protocol Metoprolol Succinate 50 mg 10/16/24 09:00 10/19/24 09:39 Metoprolol Succinate Xl 25 Mg Tabcr PO 11/15/24 08:59 50 mg DAILY SYLVESTER Administration Ondansetron HCl 4 mg 10/15/24 20:39 Ondansetron Inj 2 Mg/Ml Inj 2 Ml IVP 11/14/24 20:38 Q6H PRN NAUSEA OR VOMITING Protocol Sennosides 1 tab 10/15/24 20:39 Senna Tablet PO 11/14/24 20:38 QDAY PRN constipation Protocol Plan 49M with type 2 DM and HTN, presenting with subacute hemoptysis and CT showing a thin-walled cavitary lesion (3.84 mm) in JENNIFER with adjacent pneumonia. Infectious etiology favored; malignancy not excluded. Hemodynamically stable, afebrile, saturating well on room air. Pending TB r/o. AFB-NAAT sent-out lab ordered. # Chronic Coccidiomycosis # Hemoptysis - resolved # Cavity lesion on left upper lobe # TB rule out Initially presented with subacute hemoptysis Thin-walled cavitary lesion with adjacent pneumonia. Stable H/H, no respiratory distress. Occupational exposures and asbestos raise malignancy risk, but wall thickness <4 mm favors benign causes. 10/16 ESR 43, CRP 1.2 Cocci IgG positive, cocci IgM negative HIV negative, Hep C Ab negative Sputum gram stain and cx unremarkable Plan: - Continue fluconazole 400mg PO QD. (Duration is typically 6 to 12 weeks) - Airborne isolation until TB ruled out - Pending AFB sputum cultures with NAAT ?3 q8h - TB Quantiferon pending - Legionella Ag pending - Pending Aspergillus Ag - Monitor for recurrent hemoptysis - Trend CBC - ID consulted, appreciates recs # Pneumonia, unspecified organism # Leukocytosis - resolved 10/16 Left lung involvement adjacent to cavity; mild leukocytosis, no hypoxia. Continues to be afebrile, no leukocytosis Blood cx 1/2 Staph epidermidis, 1/2 NGTD at 48h Plan: - ID consulted, appreciate recs - Cefuroxime 500 mg PO BID (10/19 - ) (min 5 days) - Monitor vitals, CBC # Type 2 Diabetes Mellitus without complications A1C 9.1 Home med: Basaglar 40 U daily Continues to have hyperglycemia in 200s Plan: - 15U Glargine daily - 3U Lispro with meals - Monitor BG #Transaminitis Initial AST 125, ALT 155 Denies abdominal pain. Abdomen soft, nontender, nondistended on physical exam Uptrend most like 2/2 fluconazole, though pt had elevated AST and ALT prior to fluconazole initiation. No underlying kidney dz. Plan: - Pending liver US - Continue to monitor LFTs - Outpt PCP followup # Hypertension Home med: Amlodipine 5 mg daily, benazepril 40 mg daily, metoprolol 50 mg daily Plan: - Lisinopril 40mg PO QD - Metoprolol succ 50mg PO QD - Amlodipine 5 mg daily - Monitor BP #Effusion of left knee (chronic swelling) No signs of acute infection. Plan: - Rest, Ice, Compression, Elevation - Outpatient ortho follow-up Health Maintenance Disposition: Pending TB results Feeding: Low carb consistent diet Thromboprophylaxis: Lovenox GI prophylaxis: none Bowel reg: Senna as needed Pain mgmt: Tylenol Code Status: Full code Case discussed with Dr. Collado and Dr. Dallas Sylvester MD PGY1 Attending Provider Attestation/Addendum I, Anneliese Haynes DO, attest that I was physically present for the farrell portions of the service and evaluated the patient with the resident and I reviewed and discussed the case with the resident and agree with the resident's findings and plans of care as documented above Patient seen and evaluated this AM. Pending AFBs. patient remains on room air without any active complaints. He remains eager to go home. No acute events overnight otherwise.
[2024-10-20 07:46] LABS: Basophils # (Auto) 0.1 Thou/mm3 (0.0-0.2); Basophils % (Auto) 1 % (0-2.5); Eosinophils # (Auto) 0.3 Thou/mm3 (0.0-0.5); Eosinophils % (Auto) 4 % (0-10); Hematocrit 45.2 % (41.0-53.0); Hemoglobin 15.0 g/dL (13.5-16.0); Immature Granulocytes Auto 0.05 Thou/mm3 (0.00-0.00); Lymphocytes # (Auto) 2.5 Thou/mm3 (1.0-4.8); Lymphocytes % (Auto) 32 % (10-50); Mean Corpuscular HGB Conc 33.2 g/dl (31.0-37.0); Mean Corpuscular Hemoglobin 30.7 pg (25.0-35.0); Mean Corpuscular Volume 93 fL (80-100); Monocytes # (Auto) 1.2 Thou/mm3 (0.0-0.8); Monocytes % (Auto) 15 % (0-12); Neutrophils # (Auto) 3.7 Thou/mm3 (1.8-7.7); Neutrophils % (Auto) 48 % (37-80); Nucleated Red Blood Cell # 0.00 Thou/mm3 (0.00-0.00); Nucleated Red Blood Cell % 0 /100 WBC (0); Platelet Count 199 Thou/mm3 (140-440); RDW Standard Deviation 43.0 fL (35.1-43.9); Red Blood Count 4.88 Miln/mm3 (4.50-5.90); White Blood Count 7.8 Thou/mm3 (3.8-10.6)
[2024-10-20] MEDS: METOPROLOL SUCCINATE XL 25 MG TABCR 50 MG PO (08:02)
[2024-10-20] MEDS: HYDROcodone/APAP 5/325 TABLET 1 TAB PO ×3 (08:03→21:53)
[2024-10-20] MEDS: FLUCONAZOLE 100 MG TABLET 400 MG PO (08:03)
[2024-10-20] MEDS: INSULIN GLARGINE (Lantus) 5 UNIT/0.05 ML (PER 5 UNITS) 10 UNIT SC (08:04)
[2024-10-20] MEDS: INSULIN LISPRO (AdmeLOG) 1 UNIT/0.01 ML UNIT SC (08:04)
[2024-10-20 08:15] LABS: Alanine Aminotransferase 220 U/L (10-49); Albumin, Serum 4.3 gm/dL (3.5-5.0); Albumin/Globulin Ratio 1.3 (1.2-2.2); Alkaline Phosphatase 134 U/L (46-116); Anion Gap 5 (7-16); Aspartate Amino Transferase 154 U/L (0-34); BUN/Creatinine Ratio 18 Ratio (12-20); Bilirubin,Total 0.5 mg/dL (0.3-1.2); Blood Urea Nitrogen 14 mg/dL (9-23); Calcium 9.7 mg/dL (8.3-10.6); Calcium (Corrected) 9.7 mg/dL (8.5-10.1); Carbon Dioxide 28.9 mMol/L (20.0-31.0); Chloride 100 mMol/L (98-107); Creatinine (Component) 0.8 mg/dL (0.6-1.3); Estimated Creatinine Clearance 108.2 mL/min (>60); Globulin 3.3 gm/dL (2.3-3.5); Glucose 242 mg/dL (74-106); Magnesium 1.5 mg/dL (1.6-2.6); Osmolality,Calculated 276 (275-295); Phosphorous 3.8 mg/dL (2.4-5.1); Potassium 4.8 mMol/L (3.4-5.1); Sodium 134 mMol/L (136-145); Total Protein 7.6 gm/dL (5.7-8.2); eGFR > 60 See Note
[2024-10-20] MEDS: MAGNESIUM OXIDE 400 MG TABLET PO (10:05)
[2024-10-20] MEDS: INSULIN LISPRO (AdmeLOG) 1 UNIT/0.01 ML UNIT 3 UNIT SC ×2 (11:21→17:16)
--- NOTE | 2024-10-20 11:22 | XR_ITS ---
Examination: Abdomen sonogram, Limited Date and time of exam: October 20, 2024 1249 hours INDICATIONS: Elevated liver function tests on laboratory examination today Technique: Real-time valencia scale transabdominal sonographic images of the upper abdomen obtained. Findings: Contracted gallbladder Gallbladder wall 0.4 cm no edema Common bile duct 0.2 cm Pancreatic head 2.4 cm Liver 15.1 cm fatty infiltration no focal liver lesions Normal hepatopedal portal venous flow Patent IVC IMPRESSION: Repeat the gallbladder portion of the study with fasting
[2024-10-20] MEDS: INSULIN LISPRO (AdmeLOG) 1 UNIT/0.01 ML UNIT 5 UNIT SC (21:17)
[2024-10-21] VITALS (8 sets, daily range): BP systolic 113–134; BP diastolic 80–96; PULSE 66–78; RESP 14–18; TEMP 36.1–36.8; O2SAT 94–99
--- NOTE | 2024-10-21 06:19 | XR_ITS ---
Examination: Abdomen sonogram, Limited Date and time of exam: October 21, 2024 0822 hours INDICATIONS: Elevated liver function tests on laboratory examination this week. Technique: Real-time valencia scale transabdominal sonographic images of the upper abdomen obtained. Findings: Normal gallbladder. Normal common bile duct 0.4 cm Pancreatic head 2.0 cm Liver 15.6 cm fatty infiltration no focal liver lesions. Normal hepatopedal portal venous flow. Patent IVC IMPRESSION: Normal gallbladder Liver normal size fatty infiltration
[2024-10-21 06:32] LABS: Basophils # (Auto) 0.1 Thou/mm3 (0.0-0.2); Basophils % (Auto) 1 % (0-2.5); Eosinophils # (Auto) 0.3 Thou/mm3 (0.0-0.5); Eosinophils % (Auto) 4 % (0-10); Hematocrit 46.4 % (41.0-53.0); Hemoglobin 15.3 g/dL (13.5-16.0); Immature Granulocytes Auto 0.05 Thou/mm3 (0.00-0.00); Lymphocytes # (Auto) 2.8 Thou/mm3 (1.0-4.8); Lymphocytes % (Auto) 32 % (10-50); Mean Corpuscular HGB Conc 33.0 g/dl (31.0-37.0); Mean Corpuscular Hemoglobin 29.9 pg (25.0-35.0); Mean Corpuscular Volume 91 fL (80-100); Monocytes # (Auto) 1.2 Thou/mm3 (0.0-0.8); Monocytes % (Auto) 13 % (0-12); Neutrophils # (Auto) 4.4 Thou/mm3 (1.8-7.7); Neutrophils % (Auto) 50 % (37-80); Nucleated Red Blood Cell # 0.00 Thou/mm3 (0.00-0.00); Nucleated Red Blood Cell % 0 /100 WBC (0); Platelet Count 228 Thou/mm3 (140-440); RDW Standard Deviation 41.1 fL (35.1-43.9); Red Blood Count 5.12 Miln/mm3 (4.50-5.90); White Blood Count 8.9 Thou/mm3 (3.8-10.6)
[2024-10-21 07:11] LABS: Alanine Aminotransferase 206 U/L (10-49); Albumin, Serum 4.7 gm/dL (3.5-5.0); Albumin/Globulin Ratio 1.3 (1.2-2.2); Alkaline Phosphatase 120 U/L (46-116); Anion Gap 8 (7-16); Aspartate Amino Transferase 126 U/L (0-34); BUN/Creatinine Ratio 14 Ratio (12-20); Bilirubin,Total 0.6 mg/dL (0.3-1.2); Blood Urea Nitrogen 11 mg/dL (9-23); Calcium 10.5 mg/dL (8.3-10.6); Calcium (Corrected) 10.5 mg/dL (8.5-10.1); Carbon Dioxide 25.7 mMol/L (20.0-31.0); Chloride 99 mMol/L (98-107); Creatinine (Component) 0.8 mg/dL (0.6-1.3); Estimated Creatinine Clearance 108.2 mL/min (>60); Globulin 3.5 gm/dL (2.3-3.5); Glucose 211 mg/dL (74-106); Magnesium 1.9 mg/dL (1.6-2.6); Osmolality,Calculated 271 (275-295); Phosphorous 3.8 mg/dL (2.4-5.1); Potassium 4.9 mMol/L (3.4-5.1); Sodium 133 mMol/L (136-145); Total Protein 8.2 gm/dL (5.7-8.2); eGFR > 60 See Note
--- NOTE | 2024-10-21 07:35 | PC.NURSE ---
Spoke with Calista in infection control, patient has AFBx3 negative, can take off precaution.
--- NOTE | 2024-10-21 08:38 | CHAP ---
Patient was visited by a Spiritual Care Volunteer on 10/20/2024 between 0904 and 1100 and received comfort, encouragement and/or prayer.
[2024-10-21] MEDS: INSULIN GLARGINE (Lantus) 5 UNIT/0.05 ML (PER 5 UNITS) 15 UNIT SC (09:07)
[2024-10-21] MEDS: HYDROcodone/APAP 5/325 TABLET 1 TAB PO ×2 (09:08→13:08)
[2024-10-21] MEDS: METOPROLOL SUCCINATE XL 25 MG TABCR 50 MG PO (09:08)
[2024-10-21] MEDS: FLUCONAZOLE 100 MG TABLET 400 MG PO (09:09)
[2024-10-21] MEDS: INSULIN LISPRO (AdmeLOG) 1 UNIT/0.01 ML UNIT 3 UNIT SC (11:19)
--- NOTE | 2024-10-21 12:18 | PC.SS ---
Addendum entered by Sole Brown 10/21/24 14:19: SS follow up note; Patient will discharge home today. Original Note: SS follow up note; Patient is pending AFB's. Patient will discharge home when medically cleared.
--- NOTE | 2024-10-21 12:35 | ESPR_ITS ---
Subjective Subjective Interval history: afb neg. so home ok. cocci only pos. small cavity noted on imaging Exam Vital Signs Temp Pulse Resp BP Pulse Ox O2 Del Method 97.6 F 73 18 131/80 H 94 L Room Air 10/21/24 12:00 10/21/24 12:00 10/21/24 12:00 10/21/24 12:00 10/21/24 12:00 10/21/24 12:00 Narrative Exam unchanged, benign exam still here per others Objective - Internal Medicine Labs 10/21/24 06:03 10/21/24 06:03 Labs: Laboratory Results - last 24 hr 10/16/24 10/17/24 10/21/24 16:50 09:13 06:03 WBC 8.9 RBC 5.12 Hgb 15.3 Hct 46.4 MCV 91 MCH 29.9 MCHC 33.0 RDW Std Deviation 41.1 Plt Count 228 Neut % (Auto) 50 Lymph % (Auto) 32 [place] % (Auto) 13 H Eos % (Auto) 4 Baso % (Auto) 1 Neut # (Auto) 4.4 Lymph # (Auto) 2.8 [place] # (Auto) 1.2 H Eos # (Auto) 0.3 Baso # (Auto) 0.1 Immature Gran # (Auto) 0.05 H Absolute Nucleated RBC 0.00 Immature Gran % 1 H Nucleated RBC % 0 Sodium 133 L Potassium 4.9 Chloride 99 Carbon Dioxide 25.7 Anion Gap 8 BUN 11 Creatinine 0.8 Estim Creat Clear Calc 108.2 eGFR > 60 BUN/Creatinine Ratio 14 Glucose 211 H Calculated Osmolality 271 L Calcium 10.5 Corrected Calcium 10.5 H Phosphorus 3.8 Magnesium 1.9 Total Bilirubin 0.6 AST 126 H ALT 206 H Alkaline Phosphatase 120 H Total Protein 8.2 Albumin 4.7 Globulin 3.5 Albumin/Globulin Ratio 1.3 Mycobacterial Culture See Sep Rpt See Sep Rpt Assessment & Plan A&P Narrative cavitary pulm lesion with hemoptysis and w/o wt loss. and local cocci pos with neg afb's noted dm II htn hemoptysis transient wtih afb's neg, then pt does not have contagious tb so no need for isolation primary team stopped other po agents , that is their decision I can see saturday . if home before then and he wants home as his 18 y/o has a job at and he does not want to jeopardize that job, and theyoungest at home is 9, so school aged, I can only see if cocci pos at reference lab and preferably chest imaging report provided. [facility] treat tb if cx positivebut no need to stay here for 6 weeks as the stain and afb pcr are neg. afebrile cavities can occure with CA, or other infection, so if cocci neg at reference lab, suggest rethinking the role of po abx will see again prn Time Spent With Patient Time: Total time spent is greater than 50% in coordination of care (as documented) at patient's floor/unit and/or counseling patient:
--- NOTE | 2024-10-21 13:08 | PD.RESPRO ---
Documentation for date of: 10/21/24 Subjective Subjective Interval history: pt is evaluated at bedside and is alert and oriented x4. He is notified that he NAAT test and AFB x3 returned negative for prescence of acid fast bacilli or M. Tuberculosis. We have recieved preliminary approval from [facility] department that they do not have any concerns about discharging patient given his negative test results. We will wait for confirmation before proceeding with discharge. Pt is informed of the news and does not have any further questions or concerns at this time. Exam Vital Signs Temp Pulse Resp BP Pulse Ox O2 Del Method 97.6 F 73 18 131/80 H 94 L Room Air 10/21/24 12:10/21/24 12:00 10/21/24 12:00 10/21/24 12:00 10/21/24 12:10/21/24 12:00 Narrative Exam General: No acute distress, well nourished Eye: PERRL, EOMI, normal conjunctiva, no scleral icterus HENT: Normocephalic, atraumatic, normal hearing, moist oral mucosa Neck: Supple, non-tender, no JVD, no lymphadenopathy Lungs: Clear to auscultation bilaterally, non-labored respirations, symmetric chest rise, no use of accessory muscles Heart: Normal S1 and S2, no S3 or S4 appreciated. Normal rate and regular rhythm, no murmurs, rubs gallops, or edema. Peripheral pulses intact bilaterally, capillary refill brisk distally Abdomen: Soft, non-tender, non-distended, normal bowel sounds. No guarding or rebound tenderness. Musculoskeletal: Normal range of motion and strength, TTP of lateral aspect of left knee, L knee swelling, no warmth or erythema Skin: Skin is warm, dry, no rashes or lesions. Neurologic: Alert, awake and oriented x3. CN II-XII grossly intact. No focal neuro deficits. No signs of meningeal irritation noted. Psychiatric: Cooperative, appropriate mood and affect Objective Labs 10/21/24 06:03 10/21/24 06:03 Labs: Laboratory Results - last 24 hr 10/16/24 10/17/24 10/21/24 16:50 09:13 06:03 WBC 8.9 RBC 5.12 Hgb 15.3 Hct 46.4 MCV 91 MCH 29.9 MCHC 33.0 RDW Std Deviation 41.1 Plt Count 228 Neut % (Auto) 50 Lymph % (Auto) 32 [place] % (Auto) 13 H Eos % (Auto) 4 Baso % (Auto) 1 Neut # (Auto) 4.4 Lymph # (Auto) 2.8 [place] # (Auto) 1.2 H Eos # (Auto) 0.3 Baso # (Auto) 0.1 Immature Gran # (Auto) 0.05 H Absolute Nucleated RBC 0.00 Immature Gran % 1 H Nucleated RBC % 0 Sodium 133 L Potassium 4.9 Chloride 99 Carbon Dioxide 25.7 Anion Gap 8 BUN 11 Creatinine 0.8 Estim Creat Clear Calc 108.2 eGFR > 60 BUN/Creatinine Ratio 14 Glucose 211 H Calculated Osmolality 271 L Calcium 10.5 Corrected Calcium 10.5 H Phosphorus 3.8 Magnesium 1.9 Total Bilirubin 0.6 AST 126 H ALT 206 H Alkaline Phosphatase 120 H Total Protein 8.2 Albumin 4.7 Globulin 3.5 Albumin/Globulin Ratio 1.3 Mycobacterial Culture See Sep Rpt See Sep Rpt Quality Measures Quality Measures VTE prophylaxis Assessment & Plan Assessment Current Active Medications: Generic Name Dose Route Start Last Admin Trade Name Freq PRN Reason Stop Dose Admin Acetaminophen 650 mg 10/15/24 20:34 Acetaminophen 325 Mg Tablet PO 11/14/24 20:33 Q6H PRN Fever >101.5 Acetaminophen 650 mg 10/15/24 20:39 Acetaminophen 325 Mg Tablet PO 11/14/24 20:38 Q6H PRN PAIN SCALE 1-3 (mild Hydrocodone Bitart/Acetaminophen 1 tab 10/20/24 21:26 10/21/24 13:08 Hydrocodone/Apap 5/325 Tablet PO 10/25/24 21:25 1 tab Q4HR PRN Administration Pain Scale 4-10 Amlodipine Besylate 5 mg 10/16/24 09:00 10/21/24 09:08 Amlodipine Besylate 5 Mg Tablet PO 11/15/24 08:59 5 mg DAILY SYLVESTER Administration Dextrose 25 ml 10/16/24 21:35 Dextrose 50%-Water Inj 50 Ml Syringe IV 11/15/24 21:34 Q15MIN PRN BG 50-70 responsive npo pt Dextrose 50 ml 10/16/24 21:35 Dextrose 50%-Water Inj 50 Ml Syringe IV 11/15/24 21:34 Q15MIN PRN BG <50 OR BG <70 & pt unresponsive Enoxaparin Sodium 40 mg 10/16/24 09:00 10/21/24 09:09 Enoxaparin Sod Inj 40 Mg/0.4 Ml Syringe SC 10/30/24 08:59 Not Given QDAY SYLVESTER Fluconazole 400 mg 10/17/24 15:15 10/21/24 09:09 Fluconazole 100 Mg Tablet PO 10/24/24 15:14 400 mg QDAY SYLVESTER Administration Glucagon 1 mg 10/16/24 21:35 Glucagon Inj 1 Mg Vial IM Q15MIN PRN BG <70, and no IV access Insulin Degludec 20 unit 10/22/24 09:00 Insulin Degludec 5 Unit/0.05 Ml (Per 5 Units) SC 11/21/24 08:59 QDAY [facility] Insulin Human Lispro 3 unit 10/20/24 11:30 10/21/24 11:19 Insulin Lispro (Admelog) 1 Unit/0.01 Ml Unit SC 11/19/24 11:29 3 unit AC SYLVESTER Administration Lisinopril 40 mg 10/16/24 09:00 10/21/24 09:08 Lisinopril 20 Mg Tablet PO 11/15/24 08:59 40 mg DAILY SYLVESTER Administration Protocol Metoprolol Succinate 50 mg 10/16/24 09:00 10/21/24 09:08 Metoprolol Succinate Xl 25 Mg Tabcr PO 11/15/24 08:59 50 mg DAILY SYLVESTER Administration Ondansetron HCl 4 mg 10/15/24 20:39 Ondansetron Inj 2 Mg/Ml Inj 2 Ml IVP 11/14/24 20:38 Q6H PRN NAUSEA OR VOMITING Protocol Sennosides 1 tab 10/15/24 20:39 Senna Tablet PO 11/14/24 20:38 QDAY PRN constipation Protocol
--- NOTE | 2024-10-21 13:35 | ESDS_ITS ---
<Statement entered by Parker Betts MD - 10/21/24 15:27> Patient was examined and case was reviewed with team including attending physician. Note reviewed, I agree with most of its contents and agree with the patient's care. Parker Betts MD PGY-2 Planned Discharge Date 10/21/24 DS: Providers Provider Date of admission: 10/15/24 20:34 Primary care physician: Iveth Watson PA-C Admitting Provider: Socorro Jc MD Attending Provider on Admission: Anneliese Haynes DO Consults: 10/15/24 23:14 Referral Irina Routine Comment: Referral Respiratory Therapy Routine Comment: 10/17/24 10:52 Consult to Infectious Diseases Routine Comment: Consulting Provider: Donald Zurita Attending Provider on DC: En Canela MD Discharging Provider: José Miguel LockwoodStmartha Betts MD DS: Diagnosis Problem List Completed Was Problem List Reviewed/Reconciled?: Yes Hospital Course Hospital Course Hospital course: Pt is a 49-year-old male with a history of type 2 diabetes mellitus and hypertension who presented to the ED with cough and hemoptysis. He was admitted for further evaluation of hemoptysis and cavitary lesion seen on CT. Pt was admitted on isolation until tuberculosis is ruled out. Pt's IgG Coccidiodes panel was positive indicated chronic infection. Infectious Diseases was consul jazmyne for presence of pneumonia on Chest X ray and for Valley Fever diagnosis. Infectious Disease recommended outpatient followup for Valley Fever diagnosis and put in orders for Cefuroxime 500 mg for treatment of pneumonia. Pt was started on Flucanozole 400mg PO QDAY for treatment of Valley Fever. NAAT testing and AFB screen x3 was negative for growth or presence of M. Tuberculosis per [facility]. Pt is medically stable at time of discharge # Chronic Coccidiomycosis # Hemoptysis - resolved # Cavity lesion on left upper lobe # TB rule out # Pneumonia, unspecified organism # Leukocytosis - resolved # Type 2 Diabetes Mellitus without complications #Transaminitis # Hypertension #Effusion of left knee (chronic swelling) Plan was reviewed with senior resident Dr. Tobias Betts and attending physician Dr. Canela -Guillermo Hinds ([place]) Time Spent with Patient Time attestation: Total time spent providing and/or coordinating discharge services: Time spent: Greater than 30 minutes Exam Vital Signs Temp Pulse Resp BP Pulse Ox O2 Del Method 97.6 F 73 18 131/80 H 94 L Room Air 10/21/24 12:00 10/21/24 12:00 10/21/24 12:00 10/21/24 12:00 10/21/24 12:00 10/21/24 12:00 Narrative Exam General: No acute distress, well nourished Eye: PERRL, EOMI, normal conjunctiva, no scleral icterus HENT: Normocephalic, atraumatic, normal hearing, moist oral mucosa Neck: Supple, non-tender, no JVD, no lymphadenopathy Lungs: Clear to auscultation bilaterally, non-labored respirations, symmetric chest rise, no use of accessory muscles Heart: Normal S1 and S2, no S3 or S4 appreciated. Normal rate and regular rhythm, no murmurs, rubs gallops, or edema. Peripheral pulses intact bilaterally, capillary refill brisk distally Abdomen: Soft, non-tender, non-distended, normal bowel sounds. No guarding or rebound tenderness. Musculoskeletal: Normal range of motion and strength, TTP of lateral aspect of left knee, L knee swelling, no warmth or erythema Skin: Skin is warm, dry, no rashes or lesions. Neurologic: Alert, awake and oriented x3. CN II-XII grossly intact. No focal neuro deficits. No signs of meningeal irritation noted. Psychiatric: Cooperative, appropriate mood and affect Discharge Plan Plan Patient Disposition: HOME (Self Care) Care Plan Goals: Follow up with primary care physician within 1 week of discharge Take your medications as prescribed Should any symptoms recur or worsen patient is instructed to return to the ED. Prescriptions/Referrals Prescriptions/Med Rec: New fluconazole 200 mg tablet 400 mg PO QDAY Qty: 60 0RF insulin glargine [Basaglar KwikPen U-100 Insulin] 100 unit/mL (3 mL) insulin pen 40 unit subcut QAM Qty: 15 2RF (DME) insulin syringe-needle U-100 1 mL 32 gauge x 5/16 syringe See Rx Instructions .Route Qty: 100 2RF Rx Instructions: As directed benazepril 40 mg tablet 40 mg PO QDAY Qty: 30 2RF Continued insulin glargine [Basaglar KwikPen U-100 Insulin] 100 unit/mL (3 mL) insulin pen 40 unit SUBCUT DAILY Patient Comments: INJECT 40 UNITS SUBCUTANEOUSLY A DAY FOR DIABETES INCREASE metoprolol succinate 50 mg tablet extended release 24 hr 50 mg PO DAILY Patient Comments: TAKE 1 TABLET BY MOUTH DAILY FOR BLOOD PRESSURE acetaminophen 650 mg tablet extended release 650 mg PO Q12H PRN (Reason: pain) Patient Comments: 1-2 TAB BY MOUTH 2 TIMES A DAY FOR PAIN ibuprofen 600 mg tablet 600 mg PO Q6H PRN (Reason: pain) Patient Comments: TAKE 1 TABLET BY MOUTH EVERY 6 TO 8 HOURS WITH FOOD NEEDED FOR PAIN amlodipine 5 mg tablet 5 mg PO DAILY Patient Comments: TAKE 1 TABLET BY MOUTH DAILY FOR BLOOD PRESSURE benazepril 40 mg tablet 40 mg PO DAILY Patient Comments: TAKE 1 TABLET BY MOUTH EVERY DAY FOR HIGH BLOOD PRESSURE cyclobenzaprine 10 mg tablet 10 mg PO .qhs Patient Comments: TAKE 1 TABLET BY MOUTH EVERY NIGHT FOR MUSCLE promethazine-DM 6.25-15 mg/5 mL syrup 5 ml PO Q4H PRN (Reason: cough) Patient Comments: GIVE 5ML BY MOUTH EVERY 4-6 HOURS NEEDED FOR COUGH Discontinued hydrocodone-acetaminophen 7.5-325 mg tablet 1 tab PO Q6H Patient Comments: TAKE 1 TABLET BY MOUTH FOUR TIMES A DAY X7 DAYS Referrals: Iveth Watson PA-C [Primary Care Provider] - Patient/Caregiver Discharge Instructions Education Materials: Understanding Coccidioidomycosis, ED Diabetes- Overview Print Language: Frisian Stand Alone Forms: [facility] Award Info., Patient Portal Info Letter Discharge Order Discharge Orders: Discharge (Routine); Ordered 10/21/24 Ordered By: Parker Betts Quality Discharge Quality Measures none MD Attestestation MD Attestation I have examined the patient, reviewed labs and imaging findings, discussed the case with the resident(s), and reviewed entered orders. I agree with the plan of care as outlined in this note. Time Spent: [address] Rola MD
[2024-10-22 06:27] LABS: Legionella Ag, EIA, Urine* NOT DETECTED
[2024-10-22 17:47] LABS: Index Value <0.50
[2024-10-23 06:44] LABS: Aspergillus Ag, Ser* NOT DETECTED
== END 2024-10-21 16:41 | disposition home or self-care (01) | DRG 139 ==
LOC: SERX 16:23 → SERHOLD 21:21 → S3NX 22:31
PROVIDERS: Internal Medicine Infectious Disease; Nurse Practitioner Family; Registered Nurse General Practice; Admitting Provider Student in an Organized Health Care Education/Training Program; Emergency Provider Emergency Medicine; PCP Physician Assistant; Visit Provider Internal Medicine
DX: J15.9 Unspecified bacterial pneumonia (principal); E11.9 Type 2 diabetes mellitus without complications; I10 Essential (primary) hypertension; R04.2 Hemoptysis; M25.461 Effusion, right knee; K92.0 Hematemesis; B38.0 Acute pulmonary coccidioidomycosis; G89.29 Other chronic pain; Z53.20 Procedure and treatment not carried out because of patient's decision for unspecified reasons; Z78.9 Other specified health status; Z79.4 Long term (current) use of insulin; Z79.899 Other long term (current) drug therapy
CPT/HCPCS: 36415; 71046; 71250; 76705; 80053; 83036; 83605; 83735; 84100; 84145; 85025; 85610; 85652; 85730; 86140; 86331; 86480; 86635; 86703; 86803; 87015; 87040; 87077; 87116; 87186; 87205; 87206; 87305; 87449; 87811; 93225; 99284; J0696; J1650; J1815; J3475; A9270

== ENCOUNTER 2025-01-14 12:59 | Outpatient (AMB) | payer MEDICAID, SELFPAY ==
[2025-01-14 13:12] VITALS: BP 136/86; PULSE 100; RESP 18; TEMP 36.8; O2SAT 97; BMI 26.6
--- NOTE | 2025-01-14 13:12 | ORTHONT_ITS ---
Vital signs 01/14/25 13:12 Height 1.7 m Height Method Measured Weight 77.366 kg Weight Measurement Method Standing Scale BMI 26.6 BP 136/86 H Blood Pressure Source Automatic Cuff Blood Pressure Location Left Upper Arm Position Sitting Respiration 18 Pulse 100 Pulse Source Monitor Temp 98.3 F Temp Source Temporal Artery Scan Pulse Oximetry (%) 97 Oxygen Delivery Method Room Air Med/Allergies Allergies & Medications Allergies No Known Allergies Allergy (Verified 01/14/25 13:13) Medication Reconciliation acetaminophen 650 mg tablet,extended release 650 mg PO Q12H PRN pain 10/15/24 [H istory Confirmed 01/14/25] amlodipine 5 mg tablet 5 mg PO DAILY 10/15/24 [History Confirmed 01/14/25] benazepril 40 mg tablet 40 mg PO DAILY 10/15/24 [History Confirmed 01/14/25] cyclobenzaprine 10 mg tablet 10 mg PO .qhs 10/15/24 [History Confirmed 01/14/25] ibuprofen 600 mg tablet 600 mg PO Q6H PRN pain 10/15/24 [History Confirmed 01/14/25] insulin glargine 100 unit/mL (3 mL) subcutaneous pen (Basaglar KwikPen U-100 Insulin) 40 unit subcut DAILY 10/15/24 [History Confirmed 01/14/25] metoprolol succinate 50 mg tablet,extended release 24 hr 50 mg PO DAILY 10/15/24 [History Confirmed 01/14/25] promethazine-DM 6.25 mg-15 mg/5 mL oral syrup 5 ml PO Q4H PRN cough 10/15/24 [History Confirmed 01/14/25] benazepril 40 mg tablet 40 mg PO QDAY #30 tabs 10/21/24 [Rx Confirmed 01/14/25] fluconazole 200 mg tablet 400 mg (2 x 200 mg) PO QDAY #60 tabs 10/21/24 [Rx Confirmed 01/14/25] insulin glargine 100 unit/mL (3 mL) subcutaneous pen (Basaglar KwikPen U-100 Insulin) 40 unit (0.4 mL) subcut QAM #15 mL 10/21/24 [Rx Confirmed 01/14/25] insulin syringe-needle U-100 1 mL 32 gauge x 5/16 #100 ea 10/21/24 [Rx Confirmed 01/14/25] meloxicam 7.5 mg tablet 7.5 mg PO QDAY #45 tabs 01/14/25 [Rx] meloxicam 7.5 mg tablet 7.5 mg PO QDAY #45 tabs 01/14/25 [Rx] Exam Exam Patient is in no acute distress and is cooperative with the examination today. Breathing is nonlabored. Patient has a normal mood and affect. Bilateral extremities were evaluated and demonstrates sensation intact to light touch. Palpable pedal pulses are present. No significant edema is present. Bilateral hips were examined. The patient has no pain with log roll of the hips. Internal rotation to 30 degrees and external rotation to 30 degrees is painless. Negative FADIR. Right knee was examined today. The right knee is in reasonable alignment. Range of motion from 0-120 degrees. Knee is stable to varus and valgus as well as AP translation with <5mm. Patient has a negative Mc[place]rays. There is no pain with patellofemoral compression and no crepitus noted. The knee is nontender to palpation. Left knee was examined today. The left knee is in varus alignment. Range of motion from 0-115 degrees. Knee is stable to varus and valgus as well as AP translation with <5mm. Patient has a negative Mc[place]rays. There is no pain with patellofemoral compression and no crepitus noted. The knee is tender to palpation medially. An MRI demonstrates horizontal tear of the posterior horn the medial meniscus Assessment and Plan Problem List (1) Pain in left knee: Status: Acute Plan ASSESSMENT AND PLAN 1. Left knee derangement: Experiencing pain in the left knee for approximately 1 year, which has progressively worsened. The pain is primarily located behind the bone. Previous MRI results indicated a stretched ACL and a minor tear at the posterior aspect of the knee, which is unlikely to be the source of the current pain. No prior hip or knee surgeries, injections, or physical therapy. Anti-inflammatory medication still helps. A standing x-ray will be ordered to further evaluate the condition. An anti- inflammatory medication will be prescribed to alleviate the pain and reduce swelling. The prescription will be sent to the pharmacy. If the x-ray results indicate further issues, a cortisone injection may be considered at the next visit. Follow-up: 02/2025 Office Procedures GNS Level of Care Nursing/Assessment Patient Status: Initial/New Patient Nursing Assessment/Reassesment: Medication Reconciliation, Update PMH in EMR and Vital Signs Coordination of Care: Complex Care and Chronic Disease 1-5, Education Complex Pt/Fam, Consent,records obtained, informed consent, Lab and Imaging orders, Results/Orders obtained and Staff clarify orders New Patient Charge New Patient Point Assignment: [id number] New Patient Point Charge: INTEGRITY SPECIALIST Level 3 ([id number]) MA Intake Visit Data Collection New Patient or Established: Established Patient (seen at [facility] within 3 years) Reason for Visit:: DERANGEMENT LEFT KNEE Seen by Clinical Staff ONLY (RN/MA): No [employer] 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: No PCP or OBGYN visit in last 3 months: Yes Hx Now: No Do You Feel Safe at Home: Yes Authorities Contacted: N/A Questionairres Past Medical History Past Medical History Have you ever been diagnosed with any of the following: Cardiology Problems Congestive Heart Failure: No Hypertension: Yes Respiratory Problems Chronic Obstructive Pulmonary Disease (COPD): No Genital/Urinary Problems Renal Disease: No Endocrine Problems Diabetes Mellitus Type 1: No Diabetes Mellitus Type 2: Yes Subjective Visit Visit for: new patient and knee Immunization / Flu Flu Vaccine in the Last 12 Months: No Flu Vaccine Exclusion Criteria: Refused by Patient History of Present Illness Chief complaint: DERANGEMENT LEFT KNEE HISTORY OF PRESENT ILLNESS I, Solis Oropeza, have obtained verbal consent from the patient, to be recorded during this encounter which may include, but not limited to, medical history, examination, treatment plans, and relevant health information.? Patient was informed that recording will be read and reviewed by myself before inclusion in the medical chart. The patient is experiencing symptoms of derangement of the left knee. He has had pain for about a year, but it has only recently started getting worse. He has not had any prior hip or knee surgeries. The most recent imaging was completed here in [place]. He has not had recent x-rays, but has had an MRI. He has not had injections or physical therapy. Anti-inflammatory medication still help. He reports experiencing pain in his left knee for approximately 1 year, which has progressively worsened. He first noticed the issue when he struggled to lift his leg while entering his vehicle, accompanied by swelling in the knee. 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 He has not sought treatment from another surgeon and has not received any injections or physical therapy. He has not taken any medications for his knee. Diagnostic tests, including an x-ray and MRI, have been performed, revealing a stretched ACL and a minor tear at the posterior aspect of the knee. All radiographic images were obtained with the patient in a supine position. He localizes the pain to the area behind the bone. His right knee remains unaffected. 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
--- NOTE | 2025-01-14 13:22 | XR_ITS ---
EXAMINATION: Bilateral AP knee single view Left knee PA flexion standing, lateral left knee, axial left knee 3 views TECHNIQUE: Bilateral AP knees standing single view Left knee PA flexion standing, left knee lateral standing, axial left knee 3 views total 4 views Date and time: January 14, 2025, 1331 hours INDICATIONS: Left knee pain and swelling 1 year. FINDINGS: Moderate osteopenia Mild narrowing medial lateral joint spaces right knee Moderate narrowing medial joint space left knee Mild to moderate osteoarthritis left patellofemoral joint IMPRESSION: Moderate narrowing medial joint space left knee Mild to moderate osteoarthritis left patellofemoral joint
== END 2025-01-14 13:24 | disposition home or self-care (01) ==
LOC: HODSRG 12:59
PROVIDERS: PCP Physician Assistant; Referring Provider Physician Assistant; Supervising Provider Orthopaedic Surgery Adult Reconstructive Orthopaedic Surgery; Visit Provider Orthopaedic Surgery Adult Reconstructive Orthopaedic Surgery
DX: M25.562 Pain in left knee (principal); M23.92 Unspecified internal derangement of left knee; I10 Essential (primary) hypertension; M17.12 Unilateral primary osteoarthritis, left knee; E11.9 Type 2 diabetes mellitus without complications; Z79.4 Long term (current) use of insulin
CPT/HCPCS: 73564; 99203; G0463